=== PATIENT | female | born 1995 | race Caucasian/White ===

== ENCOUNTER 2018-03-02 23:19 | Emergency (ER) | payer MEDICAID, SELFPAY ==
[2018-03-02 23:19] VITALS: BP 133/69; PULSE 97; RESP 18; TEMP 36.6; O2SAT 97; BMI 27.7
--- NOTE | 2018-03-02 23:33 | ED.VISSUMM ---
- ER Visit Summary Date of Service: 03/02/18 Chief Complaint: Left-sided back pain History of Present Illness: The patient is a 22 F who has history of 5 myalgia and depression who presents with left-sided back pain. There is no history of trauma. She denies fever, chills night sweats. She denies cough, shortness of breath difficulty breathing. Denies chest pain. She denies dysuria, frequency, urgency or hematuria. She denies any vaginal bleeding. She denies any skin lesions. She denies any radicular pain. Denies bowel bladder dysfunction. Denies saddle paresthesia or anesthesia. She denies foot drop. She denies quadricep weakness going up or down steps. Physical Examination: Vital signs revealed slight elevation blood pressure 130/69. She has a depressed affect. Lungs are clear to auscultation with good maneuver bilaterally. Heart is regular without murmur, gallop or rub. Abdomen soft nontender. She has reproducible left paralumbar discomfort. Twisting bending causes discomfort. Straight leg test is negative. DTRs are symmetric no clonus or Babinski. DP and PT pulses are palpable. Test Results: None are indicated Emergency Department Course and Treatment: Patient is no longer taking Robaxin or anti-inflammatory. She states she has tramadol at home. Therefore patient received a dose of ibuprofen and appropriate home-going instructions for back pain Treatment Plan: Treat for muscle skeletal back pain and follow-up with PCP as needed if no improvement in 3-5 days Disposition: Discharged home in stable condition Impression: Paralumbar left-sided back pain without sciatica This note was generated with [employer] dictation software. It may contain incorrect words, spelling, and punctuation that were not noted in review of the chart prior to signing ED Disposition - Plan for ED Patient: Disposition: Home or Assisted Living Chief Complaint: Back Instructions: ED Neck Back Pain General Prescriptions: Ibuprofen 800 mg PO TID #14 tab Referrals: Tenzin Espinoza DO [Primary Care Provider] - 3-5 Days if not improving
--- NOTE | 2018-03-02 23:36 | ED.DCSUM_ITS ---
- ER Visit Summary Date of Service: 03/02/18 Chief Complaint: Left-sided back pain History of Present Illness: The patient is a 22 F who has history of 5 myalgia and depression who presents with left-sided back pain. There is no history of trauma. She denies fever, chills night sweats. She denies cough, shortness of breath difficulty breathing. Denies chest pain. She denies dysuria, frequency , urgency or hematuria. She denies any vaginal bleeding. She denies any skin lesions. She denies any radicular pain. Denies bowel bladder dysfunction. Denies saddle paresthesia or anesthesia. She denies foot drop. She denies quadricep weakness going up or down steps. Physical Examination: Vital signs revealed slight elevation blood pressure 130/ 69. She has a depressed affect. Lungs are clear to auscultation with good maneuver bilaterally. Heart is regular without murmur, gallop or rub. Abdomen soft nontender. She has reproducible left paralumbar discomfort. Twisting bending causes discomfort. Straight leg test is negative. DTRs are symmetric no clonus or Babinski. DP and PT pulses are palpable. Test Results: None are indicated Emergency Department Course and Treatment: Patient is no longer taking Robaxin or anti-inflammatory. She states she has tramadol at home. Therefore patient received a dose of ibuprofen and appropriate home-going instructions for back pain Treatment Plan: Treat for muscle skeletal back pain and follow-up with PCP as needed if no improvement in 3-5 days Disposition: Discharged home in stable condition Impression: Paralumbar left-sided back pain without sciatica This note was generated with [employer] dictation software. It may contain incorrect words, spelling, and punctuation that were not noted in review of the chart prior to signing ED Disposition - Plan for ED Patient: Disposition: Home or Assisted Living Chief Complaint: Back Instructions: ED Neck Back Pain General Prescriptions: Ibuprofen 800 mg PO TID #14 tab Referrals: Tenzin Espinoza DO [Primary Care Provider] - 3-5 Days if not improving
[2018-03-03] MEDS: Ibuprofen 400 MG Tablet 800 MG PO
[2018-03-03 00:06] VITALS: BP 129/70; PULSE 74; RESP 16; O2SAT 98
[2018-03-03 00:11] VITALS: BP 130/75; PULSE 74; RESP 16; O2SAT 97
== END 2018-03-03 00:12 | disposition home or self-care (01) ==
LOC: ED 23:46
PROVIDERS: Emergency Provider Emergency Medicine; Family Provider Family Medicine; PCP Family Medicine
DX: M54.5 Low back pain (principal); M79.7 Fibromyalgia; R03.0 Elevated blood-pressure reading, without diagnosis of hypertension; F32.9 Major depressive disorder, single episode, unspecified; Z79.899 Other long term (current) drug therapy
CPT/HCPCS: 99282

== ENCOUNTER 2019-04-30 11:08 | Emergency (ER) | payer MEDICAID, SELFPAY ==
[2019-04-30 11:09] VITALS: BP 124/81; PULSE 97; RESP 16; TEMP 36.6; O2SAT 100; BMI 25.0
--- NOTE | 2019-04-30 12:15 | US_ITS ---
STUDY: ULTRASOUND OF THE FEMALE PELVIS - COMPLETE REASON FOR EXAM: Female, 24 years old. Pelvic pain. LMP: April 23, 2019. TECHNIQUE: Transvaginal TECHNICAL QUALITY: Adequate. COMPARISON: None. FINDINGS: The uterus is anteverted and is in a midline position. The uterus measures 8.7 cm x 6.2 cm x 4.4 cm. Normal uterine cervix. The endometrium measures 1 mm in thickness, and is . There is no demonstrated endometrial mass. There is no demonstrated myometrial mass. I.U.D. - The patient does not have an I.U.D. The right ovary is visualized. The right ovary measures 5.1 cm x 3.4 cm x 2.6 cm. There is a 2.2 cm x 1.8 cm x 1.9 cm ovarian cyst. There is no visualized right adnexal mass or complex lesion. There is normal arterial and normal venous vascularity. The left ovary is visualized. The left ovary measures 4.9 cm x 3.9 cm x 4.1 cm. There is a 3.8 cm x 3.4 cm x 3.3 cm cyst. There is no visualized left adnexal mass or complex lesion. There is normal arterial and normal venous vascularity. There is no fluid in the cul-de-sac. Polycystic ovary disease: No. US/Transvaginal Non- IMPRESSION: Bilateral ovarian cysts. Electronically Signed: Олег Braga, at 14:25 EDT , Service support ,
[2019-04-30] MEDS: Ketorolac 30 MG/ML Syringe IV (13:31)
[2019-04-30 13:50] LABS: Absolute Lymphocyte Count 3.84 X10^3/uL (0.83-4.51); Absolute Neutrophil Count 10.1 X10^3/uL (2.0-7.7); Basophil# 0.09 X10^3/uL; Basophil% 0.6 % (0-1); Eosinophil# 0.31 X10^3/uL; Hematocrit 39.6 % (37-47); Hemoglobin 13.7 g/dL (12.0-15.0); Lymphocyte # 3.84 X10^3/ul (4.0); Lymphocyte % 24.8 % (19-41); Mean Corp Hgb Conc 34.6 g/dL (32-36); Mean Corpuscular Hgb 31.5 pg (27.0-32.0); Mean Platelet Vol. 8.9 fl (6.2-12.0); Monocyte# 1.06 X10^3/uL; Monocyte% 6.8 % (0-10); NRBC Flagged by Analyzer 0 % (0-5); Neutrophil # 10.14 X10^3/uL (2.7-7.7); Neutrophil % 65.4 % (47-70); Platelet Count 350 K/mm3 (150-450); RBC Distribution Width CV 11.9 % (11.6-14.6); RBC Distribution Width SD 39.5 fl (35.1-43.9); Red Blood Count 4.35 M/mm3 (4.2-5.4); White Blood Count 15.5 K/mm3 (4.4-11.0)
[2019-04-30 14:02] LABS: ALB/GLOB Ratio 1.1 RATIO (0.9-2.4); AST(SGOT) 48 U/L (15-37); Alanine Aminotransfer ALT/SGPT 39 U/L (13-56); Albumin, Serum 3.5 g/dL (3.2-5.0); Alkaline Phosphatase 87 U/L (45-117); Anion Gap 4 (5-15); BUN 9 mg/dL (7-18); BUN/Creat Ratio 11.7 RATIO (10-20); Calcium,Total 8.5 mg/dL (8.5-10.1); Chloride 109 mmol/L (98-107); Creatinine, Serum 0.77 mg/dL (0.55-1.02); EST Glomerular Filtration Rate 97 mL/min (>60); Est Glom Filt Rate - Afr Amer 117 mL/min (>60); Estimated Creatinine Clearance 107.67 ml/min; Globulin 3.1 g/dL (2.2-4.2); Glucose 84 mg/dL (74-106); Potassium 3.7 mmol/L (3.5-5.1); Protein, Total 6.6 g/dL (6.4-8.2); Sodium Level 140 mmol/L (136-145)
[2019-04-30 14:18] LABS: Internal QC Validated? YES +Cl - CLEAR BKGD; Pregnancy, Serum, hCG Quali. NEGATIVE Negative
[2019-04-30 14:22] LABS: Bacteria 0 SEEN /hpf (None Seen); Mucous, Urine 0 SEEN /hpf (<or=2+); Red Blood Cells-Urine 0 SEEN /hpf (0-5); White Blood Cells 0 SEEN /hpf (0-5)
[2019-04-30 14:31] LABS: Color, Urine Yellow (Yellow); Glucose, Dipstick Normal (Normal); Ketone-Dipstick Negative (Negative); Leukocyte Esterase-Dipstick Negative /ul (Negative); Nitrite-Dipstick Negative (Negative); Occult Blood-Urine Negative /ul (Negative); Protein-Dipstick Negative (Negative); Specific Gravity, Urine 1.015 (1.002-1.030); Urine Bilirubin Dipstick Negative (Negative); Urine Clarity Sl. Cloudy (Clear); Urine Urobilinogen Normal (Normal)
[2019-04-30 14:38] LABS: Squamous Epithelial Cells - UA 0-5 SEEN /hpf (5-10)
--- NOTE | 2019-04-30 15:09 | ED.DCSUM_ITS ---
- ER Visit Summary Date of Service: 04/30/19 Chief Complaint: Abdominal pain History of Present Illness: The patient is a 24 F who presents with abdominal pain that became worse today. Patient describes the pain as stabbing and dull. Patient states she has a history of ovarian cysts. Patient states she was told that there is bleeding from the cyst on her right. Patient admits to some nausea but denies any vomiting. Patient admits to some diarrhea. Patient admits to a fever of 101 at home. Patient denies any dysuria or hematuria. Patient states her last menstrual period was 2 weeks ago. Physical Examination: Vital signs are stable. Patient is afebrile. Patient is in no acute distress. Oral mucosa is pink and moist. Neck is supple. Trachea is midline. There is no JVD noted. Heart was regular rate and rhythm. Lungs are clear and equal bilaterally. Abdomen is soft. Bowel sounds are normal. There is some mild lower abdominal tenderness. There is no rebound or guarding noted. Cranial nerves II through XII are intact. There are no focal motor or sensory deficits noted. Test Results: Pelvic ultrasound showed bilateral ovarian cysts. There is no torsion noted. CBC showed a mild leukocytosis of 15.5. Basic metabolic profile was normal. Urinalysis was normal. hCG was negative. Emergency Department Course and Treatment: Patient was given IV fluids and Toradol here. Patient was feeling better on reevaluation. Patient was instructed to take Tylenol or ibuprofen as needed for pain. Patient was instructed to follow-up with her primary care physician or [facility] [employer] [employer] in 5 to 7 days. Patient understood and was agreeable with the plan. All questions were answered. Disposition: Discharge home Impression: Bilateral ovarian cysts This note was generated with [employer] dictation software. It may contain incorrect words, spelling, and punctuation that were not noted in review of the chart prior to signing ED Disposition - Plan for ED Patient: Disposition: Home or Assisted Living Diagnosis: Ovarian cyst Instructions: Ovarian Cyst Referrals: Tenzin Espinoza DO [Primary Care Provider] - 5-7 Days
[2019-04-30 15:30] VITALS: RESP 16
== END 2019-04-30 15:30 | disposition home or self-care (01) ==
PROVIDERS: Emergency Provider Emergency Medicine; Family Provider Family Medicine; PCP Family Medicine
DX: N83.201 Unspecified ovarian cyst, right side (principal); N83.202 Unspecified ovarian cyst, left side; R50.9 Fever, unspecified; R11.0 Nausea; R19.7 Diarrhea, unspecified; M79.7 Fibromyalgia; F32.9 Major depressive disorder, single episode, unspecified; F41.9 Anxiety disorder, unspecified; F17.200 Nicotine dependence, unspecified, uncomplicated; Z79.899 Other long term (current) drug therapy
CPT/HCPCS: 76830; 80053; 81001; 84703; 85025; 93976; 96374; 99283; A4216

== ENCOUNTER 2019-08-22 03:27 | Inpatient (IN) | payer MEDICAID, SELFPAY ==
[2019-08-22] VITALS (11 sets, daily range): BP systolic 93–111; BP diastolic 62–76; PULSE 65–93; RESP 16–18; TEMP 36.2–36.8; O2SAT 96–100; BMI 22.6
--- NOTE | 2019-08-22 03:31 | PCM.HP.STD ---
Problem List (1) Choledocholithiasis Status: Suspected (2) Hyperbilirubinemia Status: Acute (3) Anxiety Status: Chronic (4) Depression Status: Chronic (5) Fibromyalgia Status: Chronic History of Present Illness Date of Admission: 08/22/19 Chief Complaint: Abdominal pain. The patient is a 24 year old F patient with past medical history as mentioned above directly admitted from outside facility because of abdominal pain, elevated LFT and suspected choledocholithiasis. Patient illness started [place] evening with abdominal pain, upper abdominal pain, sharp pain, 6-7 out of 10 in severity, radiates to her back, associated with nausea and vomiting and without aggravating or relieving factors. She reports subjective fever as well. She denied constipation or diarrhea. She denied chest pain or shortness of breath. At this time, her vital signs are stable, afebrile. Her routine blood work was remarkable for WBC of 12.6, otherwise normal. LFT revealed elevated liver transaminases as well as alkaline phosphatase and total bilirubin. Lipase was normal. CT scan abdomen and pelvis with IV contrast revealed dilatation of the intrahepatic and extrahepatic biliary tree as well as left adnexal region probably due to hemorrhagic corpus luteum cyst. Patient mentioned that she does have help period nowadays. She is being admitted for abdominal pain, elevated LFT due to biliary obstruction likely secondary to choledocholithiasis. Past Medical History Past Medical History (Chronic Problems): Chronic Problems Anxiety (Chronic) Depression (Chronic) Fibromyalgia (Chronic) Allergies acetaminophen [From [facility]] Allergy (Verified 04/30/19 11:12) Rash gabapentin Allergy (Verified 04/30/19 11:12) Nausea hydrocodone [From [facility]] Allergy (Verified 04/30/19 11:12) Rash naproxen Allergy (Verified 04/30/19 11:12) Nausea sulfamethoxazole [From [facility]] Allergy (Verified 04/30/19 11:12) Unknown trimethoprim [From [facility]] Allergy (Verified 04/30/19 11:12) Unknown Home Medications: Ambulatory Orders Medication Instructions Recorded Amitriptyline HCl [Elavil] 25 mg PO QHS 02/04/15 Diazepam [Valium] 5 mg PO TID 08/22/19 Ibuprofen 800 mg PO TID 08/22/19 Surgical History: - - Left wrist surgery. Psychiatric History: No pertinent psych hx [employer] History: No pertinent [employer] history Smoking Status: Current every day smoker Tobacco Use: Cigarettes Alcohol: None Drugs: None - *Family History Maternal History Items: Heart Disease Paternal History Items: No pertinent history Review of Systems Constitutional: Reports: Anorexia, Fever. Denies: Chills, Weakness, Fatigue Eyes: Denies: Blurred vision, Double vision, Drainage, Redness HEENT: Denies: Difficulty Hearing, Ear Pain, Eye Pain, Nasal Congestion, Sore Throat Cardiovascular: Denies: Chest Pain, Claudication, Chest Pressure, Edema, Heaviness, Palpitations, Syncope Respiratory: Denies: Cough, Pleuritic Pain, Shortness of Breath, Sputum production, Wheezing Gastrointestinal: Reports: Abdominal Pain, Nausea, Vomiting. Denies: Constipation, Diarrhea Genitourinary: Denies: Dysuria, Frequency, Hematuria Musculoskeletal: Denies: Arm Pain, Back Pain, Foot Pain Skin: Denies: Dryness, Rash Neurological: Denies: Balance problems, Double vision, Change in Speech, Slurred speech, Confusion, Headaches, Incoordination, Numbness Psychiatric: Reports: Anxiety, Depression Endocrine: Denies: Change in Body Habitus, Polydipsia, Polyuria VTE Information - Inpt Only VTE Present on Admission: No VTE Mechan Device Prophylaxis: None VTE Pharm Prophylaxis ordered?: No Patient Problems: Active and Suspected Problems Choledocholithiasis (Suspected) Hyperbilirubinemia (Acute) - Physical Exam Vitals/I&O's: Vital Signs Temp Pulse Resp BP Pulse Ox 98.0 F 71 16 104/68 100 08/22/19 03:06 08/22/19 03:06 08/22/19 03:06 08/22/19 03:06 08/22/19 03:06 Oxygen Delivery Method Room Air Weight: 144 lb 6.444 oz Body Mass Index (BMI) 22.6 General: Alert, Oriented x3, Cooperative, - - She is in moderate pain. HEENT: Atraumatic, PERRLA, EOMI, Normocephalic Oral: No Gingival or Mucosal Lesions/ Ulcerations, Dry Mucosa Neck: Supple, No JVD, Negative Carotid Bruits, Trachea Midline, Thyroid Normal Size and Texture Lungs: Clear to auscultation, Normal air movement, No rhonchi, No wheeze, No rales Cardiovascular: Regular rate, Regular Rhythm, Normal S1, Normal S2, No murmurs, PMI Normal Abdomen: Bowel Sounds Present, Non-Distended, No Hepato-splenomegaly, Tender - Diffuse upper abdominal tenderness, right upper quadrant tenderness, negative London sign. No guarding or rigidity. Extremities: No clubbing, No cyanosis, No edema Skin: No rashes, No breakdown Lymphatic: No Cervical, Supraclavicular, or Inguinal Adenopathy Neurological: Cranial nerves II-XII grossly intact, Motor Exam 5/5 strength throughout Psych/Mental Status: Normal Affect, Appropriate, Alert and oriented to time, place, person, mood and affect Laboratory data: CBC: WBC is 12.6, hemoglobin 14.9, platelet count 343,000. BMP: Glucose 137, sodium 137, potassium 3.6, serum bicarb 22, BUN 7, creatinine 0.79. LFT: Total bilirubin is 2.9, AST 359, ALT 470, alkaline phosphatase 268, lipase 137. CT scan abdomen and pelvis without contrast revealed intra-and extrahepatic biliary ductal dilatation, left adnexal lesion likely due to hemorrhagic corpus luteum cyst. Assessment/Plan All Active Problems Hyperbilirubinemia (Acute) This is a 24 years old female patient directly admitted from outside facility because of abdominal pain, found to have elevated LFT and intrahepatic and extrahepatic biliary dilatation on CT scan abdomen and she is being admitted for evaluation and treatment. #1 abdominal pain/hyperbilirubinemia/elevated LFT: With intrahepatic and extrahepatic biliary patient on CT scan abdomen. This is probably due to choledocholithiasis. Lipase is normal. Vital signs are stable, afebrile. She does have mild leukocytosis. Plan: Admit to [facility], n.p.o., IV fluids, IV morphine PRN, IV antiemetics PRN, IV Pepcid twice daily, IV Phenergan as needed, general surgery consult for ERCP, repeat CBC and CMP as well as lipase this morning. At this time, no indication for IV antibiotics. Patient has been afebrile, she has mild leukocytosis. #2 anxiety/depression: Stable, will hold Elavil and Valium at this point. #3 fibromyalgia: IV morphine PRN as above, hold ibuprofen. #4 DVT prophylaxis: Low risk patient, no prophylaxis indicated. This note was generated with [employer] software. It may contain incorrect words, spelling, and punctuation that were not noted in checking the note before signing. Code Visit Inpatient E&M: 93189 Init Hosp L2
[2019-08-22] MEDS: Famotidine 200 MG/20 ML MDV 20 MG in 0.9% Normal Saline (Pres. free 8 ML 300 MG IV ×3 (04:04→21:12)
[2019-08-22] MEDS: 0.9% Normal Saline 1,000 ML 150 ML IV ×3 (04:04→19:39)
[2019-08-22] MEDS: Morphine 2 MG/ML Syringe IV ×5 (04:08→21:17)
[2019-08-22 06:50] LABS: Absolute Lymphocyte Count 1.83 X10^3/uL (0.83-4.51); Absolute Neutrophil Count 6.6 X10^3/uL (2.0-7.7); Basophil# 0.02 X10^3/uL; Basophil% 0.2 % (0-1); Eosinophils% 1.1 % (0-5); Hematocrit 43.9 % (37-47); Hemoglobin 14.3 g/dL (12.0-15.0); Lymphocyte # 1.83 X10^3/ul (4.0); Lymphocyte % 19.7 % (19-41); Mean Corp Hgb Conc 32.6 g/dL (32-36); Mean Corpuscular Hgb 29.9 pg (27.0-32.0); Mean Corpuscular Volume 91.6 fL (81-99); Mean Platelet Vol. 9.6 fl (6.2-12.0); Monocyte# 0.78 X10^3/uL; Monocyte% 8.4 % (0-10); NRBC Flagged by Analyzer 0 % (0-5); Neutrophil # 6.56 X10^3/uL (2.7-7.7); Neutrophil % 70.4 % (47-70); Platelet Count 282 K/mm3 (150-450); RBC Distribution Width CV 11.8 % (11.6-14.6); RBC Distribution Width SD 39.7 fl (35.1-43.9); Red Blood Count 4.79 M/mm3 (4.2-5.4); White Blood Count 9.3 K/mm3 (4.4-11.0)
[2019-08-22 07:10] LABS: ALB/GLOB Ratio 0.8 RATIO (0.9-2.4); AST(SGOT) 238 U/L (15-37); Alanine Aminotransfer ALT/SGPT 380 U/L (13-56); Albumin, Serum 3.1 g/dL (3.2-5.0); Alkaline Phosphatase 261 U/L (45-117); Anion Gap 4 (5-15); BUN 4 mg/dL (7-18); BUN/Creat Ratio 5.6 RATIO (10-20); Bilirubin, Direct 2.05 mg/dL (0.00-0.30); Calcium,Total 8.1 mg/dL (8.5-10.1); Chloride 111 mmol/L (98-107); Creatinine, Serum 0.72 mg/dL (0.55-1.02); EST Glomerular Filtration Rate 104 mL/min (>60); Est Glom Filt Rate - Afr Amer 126 mL/min (>60); Estimated Creatinine Clearance 115.14 ml/min; Globulin 3.7 g/dL (2.2-4.2); Glucose 87 mg/dL (74-106); Lipase 2251 U/L (73-393); Potassium 3.5 mmol/L (3.5-5.1); Protein, Total 6.8 g/dL (6.4-8.2); Sodium Level 139 mmol/L (136-145)
--- NOTE | 2019-08-22 07:51 | PN_ITS ---
Patient Problems: Active and Suspected Problems Obstructive jaundice (Acute) Gallstone pancreatitis (Acute) Choledocholithiasis (Suspected) Hyperbilirubinemia (Acute) Subjective: Patient seen and examined. She had ERCP done today; findings included 2 large stones, complete removal by biliary sphincterectomy and balloon extraction. Laparoscopic cholecystectomy planned for Friday. Patient complains of abdominal discomfort. N.p.o., on IV fluids Objective: Physical exam: General: Alert, Oriented x3, Cooperative, in pain HEENT: Atraumatic, PERRLA, EOMI, Normocephalic Oral: Dry Mucosa Neck: Supple, No JVD, Negative Carotid Bruits, Trachea Midline, Thyroid Normal Size and Texture Lungs: Clear to auscultation, Normal air movement, No rhonchi, No wheeze, No rales Cardiovascular: Regular rate, Regular Rhythm, Normal S1, Normal S2, No murmurs, PMI Normal Abdomen: Bowel Sounds Present, Non-Distended, No Hepato-splenomegaly, Tender - Diffuse upper abdominal tenderness, right upper quadrant tenderness, negative London sign. No guarding or rigidity. Extremities: No clubbing, No cyanosis, No edema Skin: No rashes, No breakdown Lymphatic: No Cervical, Supraclavicular, or Inguinal Adenopathy Neurological: Cranial nerves II-XII grossly intact, Motor Exam 5/5 strength throughout Psych/Mental Status: Normal Affect, Appropriate, Alert and oriented to time, place, person, mood and affect Vitals/I&O's: Vital Signs Temp Pulse Resp BP Pulse Ox 98.0 F 71 16 104/68 100 08/22/19 03:06 08/22/19 03:06 08/22/19 03:06 08/22/19 03:06 08/22/19 03:06 Oxygen Delivery Method Room Air Weight: 65.5 kg Body Mass Index (BMI) 22.6 Intake and Output for Last 24 Hours 08/20/19 08/21/19 08/22/19 23:59 23:59 23:59 Intake Total Balance Laboratory Results 08/22/19 06:07: WBC 9.3, RBC 4.79, Hgb 14.3, Hct 43.9, MCV 91.6, MCH 29.9, MCHC 32.6, RDW Std Deviation 39.7, RDW Coeff of Mia 11.8, Plt Count 282, MPV 9.6, Immature Gran % (Auto) 0.200, Neut % (Auto) 70.4 H, Lymph % (Auto) 19.7, Blair % (Auto) 8.4, Eos % (Auto) 1.1, Baso % (Auto) 0.2, Absolute Neuts (auto) 6.6, Absolute Lymphs (auto) 1.83, Nucleated RBC % 0 08/22/19 06:07: Sodium 139, Potassium 3.5, Chloride 111 H, Carbon Dioxide 24.0, Anion Gap 4 L, BUN 4 L, Creatinine 0.72, Estim Creat Clear Calc 115.14, Est GFR (MDRD) Af Amer 126, Est GFR (MDRD) Non-Af 104, BUN/Creatinine Ratio 5.6 L, Glucose 87, Calcium 8.1 L, Total Bilirubin 3.30 H, Direct Bilirubin 2.05 H, AST 238 H, ALT 380 H, Alkaline Phosphatase 261 H, Total Protein 6.8, Albumin 3.1 L, Globulin 3.7, Albumin/Globulin Ratio 0.8 L, Lipase 2251 H 08/22/19 06:07: Direct Bilirubin Cancelled Current Medications Sodium Chloride () 1,000 mls @ 150 mls/hr IV .[id number] [facility] Last Admin: 08/22/19 04:04 Dose: 150 mls/hr Documented by: Famotidine 20 mg/ Sodium (Chloride) 10 mls @ 300 mls/hr IV Q12 [facility] Last Infusion: 08/22/19 04:06 Dose: Infused Documented by: Sodium Chloride () 250 mls @ 15 mls/hr IV .[id number] PRN PRN Reason: Saline Flush Sodium Chloride () 250 mls @ 15 mls/hr IV .[id number] PRN PRN Reason: Additional IVPB Infusion Morphine Sulfate () 1 - 2 mg IV Q3H PRN PRN PRN Reason: Pain Score 6-10/10 Last Admin: 08/22/19 04:08 Dose: 2 mg Documented by: Ondansetron HCl (Zofran) 4 mg IV Q8H PRN PRN PRN Reason: NAUSEA/VOMITING Promethazine HCl (Phenergan) 6.25 mg IV Q6H PRN PRN PRN Reason: NAUSEA/VOMITING Sodium Chloride () 10 - 40 ml IV UD PRN PRN Reason: SALINE FLUSH Medical Necessity - Tobacco Use Smoking Status: Current every day smoker Tobacco Use: Cigarettes Assessment/Plan All Active Problems Obstructive jaundice (Acute) Gallstone pancreatitis (Acute) Hyperbilirubinemia (Acute) 24-year-old female with past medical history of fibromyalgia comes in with abdominal pain and found to have elevated LFTs and intrahepatic biliary dilatation seen on CT scan of the abdomen. 1. Acute gallstone pancreatitis, status post ERCP with 2 gallstones removal Admitting lipase is 2291, LFTs elevated Kept n.p.o., general surgery consulted Laparoscopic cystectomy planned for Friday Continue with IV fluids, famotidine, repeat blood work in a.m. 2. Anxiety/depression/fibromyalgia, on amitriptyline and Valium, will continue to hold We will put patient on PRN Valium to prevent her from withdrawing as she is on scheduled Valium at home 3. Nicotine dependence, on replacement 4. DVT PPx- early ambulation Code Visit Inpatient E&M: 82854 Subs Hosp L2
--- NOTE | 2019-08-22 08:33 | PCM.CONS.GEN ---
Problem List (1) Obstructive jaundice Status: Acute (2) Gallstone pancreatitis Status: Acute Reason for Consult Date of Consultation: 08/22/19 Reason for Consultation: Gallstone pancreatitis with obstructive jaundice History of Present Illness: The patient is a 24 year old F who was transferred due to epigastric pain. The patient reports that the pain started [place]. She did have nausea and vomiting. She has never had a problem like this in the past. She denies any fevers or chills. She says the pain is epigastric and radiates to the back. Past Medical History Past Medical History (Chronic Problems): Chronic Problems Anxiety (Chronic) Depression (Chronic) Fibromyalgia (Chronic) Allergies acetaminophen [From [place]] Allergy (Verified 04/30/19 11:12) Rash gabapentin Allergy (Verified 04/30/19 11:12) Nausea hydrocodone [From [place]] Allergy (Verified 04/30/19 11:12) Rash naproxen Allergy (Verified 04/30/19 11:12) Nausea sulfamethoxazole [From [place]] Allergy (Verified 04/30/19 11:12) Unknown trimethoprim [From [facility]] Allergy (Verified 04/30/19 11:12) Unknown Home Medications: Ambulatory Orders Medication Instructions Recorded Amitriptyline HCl [Elavil] 25 mg PO QHS 02/04/15 Diazepam [Valium] 5 mg PO TID 08/22/19 Ibuprofen 800 mg PO TID 08/22/19 Surgical History: - - Left wrist surgery. 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 Smoking Status: Current every day smoker Tobacco Use: Cigarettes Alcohol: None Drugs: None - *Family History Maternal History Items: Heart Disease Paternal History Items: No pertinent history Review of Systems Constitutional: Denies: Anorexia, Fever HEENT: Denies: Difficulty Swallowing Cardiovascular: Denies: Chest Pain Respiratory: Denies: Cough, Shortness of Breath Gastrointestinal: Reports: Abdominal Pain, Nausea, Vomiting Musculoskeletal: Denies: Joint Tenderness Skin: Denies: Dryness Hematologic/ Lymphatic: Denies: Anemia Patient Problems: Active and Suspected Problems Obstructive jaundice (Acute) Gallstone pancreatitis (Acute) Choledocholithiasis (Suspected) Hyperbilirubinemia (Acute) - Physical Exam Vitals/I&O's: Vital Signs Temp Pulse Resp BP Pulse Ox 98.1 F 93 18 104/74 100 08/22/19 08:30 12/29/19 08:30 08/22/19 08:30 08/22/19 08:30 08/22/19 08:30 Oxygen Delivery Method Room Air Weight: 144 lb 6.444 oz Body Mass Index (BMI) 22.6 Intake and Output for Last 24 Hours 08/20/19 08/21/19 08/22/19 23:59 23:59 23:59 Intake Total Balance General: Alert, Oriented x3 Neck: No JVD Lungs: Normal air movement Cardiovascular: Regular rate, Regular Rhythm Abdomen: Soft, Non-Distended, Tender - Tender in the epigastric region Skin: No rashes Musculoskeletal: No Muscle Wasting Laboratory Results 08/22/19 06:07: WBC 9.3, RBC 4.79, Hgb 14.3, Hct 43.9, MCV 91.6, MCH 29.9, MCHC 32.6, RDW Std Deviation 39.7, RDW Coeff of Mia 11.8, Plt Count 282, MPV 9.6, Immature Gran % (Auto) 0.200, Neut % (Auto) 70.4 H, Lymph % (Auto) 19.7, [place] % (Auto) 8.4, Eos % (Auto) 1.1, Baso % (Auto) 0.2, Absolute Neuts (auto) 6.6, Absolute Lymphs (auto) 1.83, Nucleated RBC % 0 08/22/19 06:07: Sodium 139, Potassium 3.5, Chloride 111 H, Carbon Dioxide 24.0, Anion Gap 4 L, BUN 4 L, Creatinine 0.72, Estim Creat Clear Calc 115.14, Est GFR (MDRD) Af Amer 126, Est GFR (MDRD) Non-Af 104, BUN/Creatinine Ratio 5.6 L, Glucose 87, Calcium 8.1 L, Total Bilirubin 3.30 H, Direct Bilirubin 2.05 H, AST 238 H, ALT 380 H, Alkaline Phosphatase 261 H, Total Protein 6.8, Albumin 3.1 L, Globulin 3.7, Albumin/Globulin Ratio 0.8 L, Lipase 2251 H 08/22/19 06:07: Direct Bilirubin Cancelled Current Medications Sodium Chloride () 1,000 mls @ 150 mls/hr IV .Q6H40M [facility] Last Admin: 08/22/19 04:04 Dose: 150 mls/hr Documented by: Famotidine 20 mg/ Sodium (Chloride) 10 mls @ 300 mls/hr IV Q12 EZRA Last Infusion: 08/22/19 04:06 Dose: Infused Documented by: Sodium Chloride () 250 mls @ 15 mls/hr IV .[id number] PRN PRN Reason: Saline Flush Sodium Chloride () 250 mls @ 15 mls/hr IV .[id number] PRN PRN Reason: Additional IVPB Infusion Cefotetan Disodium 2 gm/ (Dextrose) 100 mls @ 200 mls/hr IV SEND TO OR W/PATIENT ONE Stop: 08/22/19 09:01 Morphine Sulfate () 1 - 2 mg IV Q3H PRN PRN PRN Reason: Pain Score 6-10/10 Last Admin: 08/22/19 04:08 Dose: 2 mg Documented by: Ondansetron HCl (Zofran) 4 mg IV Q8H PRN PRN PRN Reason: NAUSEA/VOMITING Promethazine HCl (Phenergan) 6.25 mg IV Q6H PRN PRN PRN Reason: NAUSEA/VOMITING Sodium Chloride () 10 - 40 ml IV UD PRN PRN Reason: SALINE FLUSH Assessment/Plan All Active Problems Obstructive jaundice (Acute) Gallstone pancreatitis (Acute) Hyperbilirubinemia (Acute) 24-year-old female with obstructive jaundice and gallstone pancreatitis 1. The patient was transferred with CT scan showing dilation of the intra-and extrahepatic bile duct. The patient's liver enzymes were elevated at the outside hospital with a bilirubin of 3. Today her bilirubin is similar and she still has elevated liver enzymes but her lipase which was normal yesterday has now 2200. This indicates that she has obstructive jaundice as well as gallstone pancreatitis. I recommend ERCP today to relieve the obstruction. 2. I discussed ERCP with the patient in detail. I discussed the risks including not limited to bleeding, infection, perforation of the bile duct or bowel, worsening of the pancreatitis. I also discussed possible stent placement. The patient understands the risks and will to proceed. I also discussed that I would recommend laparoscopic cholecystectomy during this hospitalization to prevent this from happening again. The patient understands. Dennys Petty MD Pager: [facility] [address] [place] [address], [address] [place] [address] Office:
--- NOTE | 2019-08-22 09:15 | NURSING ---
Report given to Chelo in surgery. Informed nurse that pt had negative test at [facility] that is in her chart.
--- NOTE | 2019-08-22 10:30 | RAD_ITS ---
PROCEDURE: FLUOROSCOPIC GUIDANCE FOR ERCP DATE OF EXAMINATION: 08/22/2019 INDICATION: Female, 24 years old. Fluoroscopic guidance for ERCP 127.7 seconds of fluoroscopy time. Single image. TECHNIQUE: Single image demonstrates patent CBD with visualization only of the left hepatic biliary tree. No extravasation. No definitive filling defects. RAD/ERCP Biliary Only IMPRESSION: Limited exam (single image only). Please see ERCP report. Electronically Signed: Farooq Becerra MD ([place]) at 12:33 EST , Service support ,
[2019-08-22 10:34] LABS: Internal QC Validated? YES +Cl - CLEAR BKGD; Pregnancy, Serum, hCG Quali. NEGATIVE Negative
--- NOTE | 2019-08-22 11:00 | GALL_PTH ---
PATIENT: AZAEL MTZ LOC: MS3 U#:[id number] AGE/SX: 24/F ROOM: MS316 RE08/22/[address]: Dr. Adelso Dillon MD : 1995 BED: 1 DIS: 08/25/2019 SPEC #: [id number] RECD: 08/24/19 13:17 STATUS: SAIMA REAdam #: [id number] RICHARD: 08/22/19 11:[address]: Dennys Petty DEPT: SURGICAL PATHOLOGY RECD BY: Rosalio Carcamo ENTERED: 08/24/19 13:55 SP TYPE: JEMMABLGIAN HATHAWAY DR: DO Dr. Mamta Powell MD Dr. Prakash Chand, MD Tissues: Gallbladder, NOS Procedures: Surgery Specimen Level III HEADER OPERATION: ERCP PRE-OP DIAGNOSIS: Obstructive jaundice, gallstone pancreatitis TISSUE SUBMITTED: Gallbladder MICROSCOPIC DIAGNOSIS Gallbladder, cholecystectomy: Chronic cholecystitis and cholelithiasis. AM:bhumika 08/26/19 MICROSCOPIC DESCRIPTION Slides are reviewed. GROSS DESCRIPTION Received is one container labeled with the patient's name and designated gallbladder. The specimen consists of a gallbladder measuring 8 x 2.5 x 2.5 cm. The external surface is smooth and glistening. Focally, it is granular, hemorrhagic and contains cautery artifact. The lumen of the gallbladder contains yellow-green mucoid bile and multiple yellow calculi averaging 0.4 cm each. The mucosa is bile-stained and without any mass lesions. The gallbladder wall averages 0.2 cm in thickness and is free of mass lesions. Grinding Operator sections of the gallbladder and the cystic duct are submitted in one cassette. / AM:bhumika 08/24/19 TC:3 CPT: 41641
--- NOTE | 2019-08-22 11:03 | OP.ERCP_ITS ---
Patient Name: Thalia Brunson Procedure Date: 08/22/2019 10:12 AM Date of : 1995 Age: 24 Procedure: ERCP Indications: Suspected bile duct stone(s), Jaundice, Suspected acute pancreatitis Providers: Dennys Petty MD Medicines: General Anesthesia Patient Profile: This is a 24 year old female. Refer to note in patient chart for documentation of history and physical. Complications: No immediate complications. Estimated blood loss: Minimal. Procedure: Pre-Anesthesia Assessment: - Prior to the procedure, a History and Physical was performed, and patient medications and allergies were reviewed. The patient's tolerance of previous anesthesia was also reviewed. The risks and benefits of the procedure and the sedation options and risks were discussed with the patient. All questions were answered, and informed consent was obtained. Prior Anticoagulants: The patient has taken no previous anticoagulant or antiplatelet agents. After reviewing the risks and benefits, the patient was deemed in satisfactory condition to undergo the procedure. After obtaining informed consent, the scope was passed under direct vision. Throughout the procedure, the patient's blood pressure, pulse, and oxygen saturations were monitored continuously. The [id number] endoscope was introduced through the mouth, and advanced to the duodenum and used to inject contrast into the bile duct. The ERCP was accomplished without difficulty. The patient tolerated the procedure well. Scope In: 10:46:21 AM Scope Out: 10:56:51 AM Total Procedure Duration Time 0 hours 10 minutes 30 seconds Findings: The major papilla was normal. A 0.035 inch x 260 cm straight Dreamwire was passed into the biliary tree. The sphincterotome was passed over the guidewire and the bile duct was then deeply cannulated. Contrast was injected. Biliary sphincterotomy was made with a monofilament sphincterotome using ERBE electrocautery. There was no post-sphincterotomy bleeding. To discover objects, the biliary tree was swept with a 12 mm balloon starting at the bifurcation. 2 stones were identified in the common duct. The biliary tree was swept with a basket starting at the bifurcation. Two stones were removed. No stones remained. The endoscope was withdrawn from the patient. Impression: - The major papilla appeared normal. - Choledocholithiasis was found. Complete removal was accomplished by biliary sphincterotomy and balloon extraction. - A biliary sphincterotomy was performed. - The biliary tree was swept. - The biliary tree was swept. Recommendation: - Return patient to hospital dial for ongoing care. - NPO [Duration]. Procedure Code(s): --- Professional --- 49034, Endoscopic retrograde cholangiopancreatography (ERCP); with removal of calculi/debris from biliary/pancreatic duct(s) 08216, 51, Endoscopic retrograde cholangiopancreatography (ERCP); with sphincterotomy/papillotomy Diagnosis Code(s): --- Professional --- K80.50, Calculus of bile duct without cholangitis or cholecystitis without obstruction R17, Unspecified jaundice CPT copyright 2017 [employer]. All rights reserved. The codes documented in this report are preliminary and upon assistance representative review may be revised to meet current compliance requirements. Dennys Petty MD 08/22/2019 11:03:28 AM This report has been signed electronically. Number of Addenda: 0 Note Initiated On: 08/22/2019 10:12 AM
--- NOTE | 2019-08-22 11:04 | PN_ITS ---
Progress Note ERCP was performed and 2 large stones were removed from the common bile duct. There appeared to be no stones remaining. Due to the fact the patient has pancreatitis I would recommend continuing n.p.o. status until her lipase is downtrending and her epigastric pain is resolved. Plan for laparoscopic cholecystectomy, likely Friday. Dennys Petty MD Pager: [facility] [address] [place] [address], [address] [place] [address] Office: [place] Vital Signs/Narrative: Vital Signs Temp Pulse Resp BP Pulse Ox 08/22/19 08:30 98.1 F 93 18 104/74 100
--- NOTE | 2019-08-22 11:04 | PCM.PN.BLA ---
Progress Note ERCP was performed and 2 large stones were removed from the common bile duct. There appeared to be no stones remaining. Due to the fact the patient has pancreatitis I would recommend continuing n.p.o. status until her lipase is downtrending and her epigastric pain is resolved. Plan for laparoscopic cholecystectomy, likely Friday. Dennys Petty MD Pager: [facility] [address] [place] [address], [address] [place] [address] Office: [place] Vital Signs/Narrative: Vital Signs Temp Pulse Resp BP Pulse Ox 08/22/19 08:30 98.1 F 93 18 104/74 100
[2019-08-22] MEDS: LORazepam 2 MG/ML Syringe 1 MG IV (18:02)
[2019-08-23] MEDS: LORazepam 2 MG/ML Syringe 1 MG IV (01:25)
[2019-08-23] MEDS: 0.9% Normal Saline 1,000 ML 150 ML IV ×4 (02:39→23:46)
[2019-08-23 03:55] VITALS: BP 111/72; PULSE 70; RESP 16; TEMP 36.6; O2SAT 99
[2019-08-23] MEDS: Morphine 2 MG/ML Syringe IV (04:00)
[2019-08-23 06:05] LABS: Absolute Lymphocyte Count 0.88 X10^3/uL (0.83-4.51); Absolute Neutrophil Count 4.9 X10^3/uL (2.0-7.7); Basophil# 0.02 X10^3/uL; Basophil% 0.3 % (0-1); Eosinophil# 0.04 X10^3/uL; Eosinophils% 0.6 % (0-5); Hemoglobin 12.6 g/dL (12.0-15.0); Lymphocyte # 0.88 X10^3/ul (4.0); Lymphocyte % 14.2 % (19-41); Mean Corpuscular Hgb 34.6 pg (27.0-32.0); Mean Corpuscular Volume 98.9 fL (81-99); Mean Platelet Vol. 10.4 fl (6.2-12.0); Monocyte# 0.27 X10^3/uL; Monocyte% 4.4 % (0-10); NRBC Flagged by Analyzer 0 % (0-5); Neutrophil # 4.93 X10^3/uL (2.7-7.7); Neutrophil % 79.9 % (47-70); Platelet Count 162 K/mm3 (150-450); RBC Distribution Width CV 14.4 % (11.6-14.6); RBC Distribution Width SD 45.9 fl (35.1-43.9); Red Blood Count 3.64 M/mm3 (4.2-5.4); White Blood Count 6.2 K/mm3 (4.4-11.0)
[2019-08-23 06:27] LABS: ALB/GLOB Ratio 0.9 RATIO (0.9-2.4); AST(SGOT) 36 U/L (15-37); Alanine Aminotransfer ALT/SGPT 71 U/L (13-56); Albumin, Serum 2.9 g/dL (3.2-5.0); Alkaline Phosphatase 129 U/L (45-117); Anion Gap 11 (5-15); BUN 34 mg/dL (7-18); BUN/Creat Ratio 24.8 RATIO (10-20); Calcium,Total 8.4 mg/dL (8.5-10.1); Chloride 101 mmol/L (98-107); Creatinine, Serum 1.37 mg/dL (0.55-1.02); EST Glomerular Filtration Rate 49 mL/min (>60); Est Glom Filt Rate - Afr Amer 60 mL/min (>60); Estimated Creatinine Clearance 60.51 ml/min; Globulin 3.3 g/dL (2.2-4.2); Glucose 228 mg/dL (74-106); Lipase 78 U/L (73-393); Potassium 4.2 mmol/L (3.5-5.1); Protein, Total 6.2 g/dL (6.4-8.2); Sodium Level 134 mmol/L (136-145)
[2019-08-23 07:21] VITALS: O2SAT 98
--- NOTE | 2019-08-23 07:53 | PN.SURG_ITS ---
Patient Problems: Active and Suspected Problems Obstructive jaundice (Acute) Gallstone pancreatitis (Acute) Choledocholithiasis (Suspected) Hyperbilirubinemia (Acute) Subjective: Patient is still having some pain but it is now in her right lower quadrant and lower back. She is not having any nausea or vomiting. She is asking for a diet. - Physical Exam Vitals/I&O's: Vital Signs Temp Pulse Resp BP Pulse Ox 97.8 F 70 16 111/72 98 08/23/19 03:55 08/23/19 03:55 08/23/19 03:55 08/23/19 03:55 08/23/19 07:21 Oxygen Delivery Method Room Air Weight: 144 lb 6.444 oz Body Mass Index (BMI) 22.6 Intake and Output for Last 24 Hours 08/21/19 08/22/19 08/23/19 23:59 23:59 23:59 Intake Total 2827 / 2827 1000 / 1000 Balance 2827 / 2827 1000 / 1000 General: Alert, Oriented x3 Neck: No JVD Lungs: Normal air movement Cardiovascular: Regular rate, Regular Rhythm Abdomen: Soft, Non-Distended Laboratory Results 08/22/19 10:22: Serum , Qual NEGATIVE 08/23/19 05:38: WBC 6.2, RBC 3.64 L, Hgb 12.6, Hct 36.0 L, MCV 98.9 D, MCH 34.6 H, MCHC 35.0, RDW Std Deviation 45.9 H, RDW Coeff of Mia 14.4, Plt Count 162, MPV 10.4, Immature Gran % (Auto) 0.600, Neut % (Auto) 79.9 H, Lymph % (Auto) 14.2 L, [place] % (Auto) 4.4, Eos % (Auto) 0.6, Baso % (Auto) 0.3, Absolute Neuts (auto) 4.9, Absolute Lymphs (auto) 0.88, Nucleated RBC % 0 08/23/19 05:38: Sodium 134 L, Potassium 4.2, Chloride 101, Carbon Dioxide 22.0, Anion Gap 11, BUN 34 H, Creatinine 1.37 H, Estim Creat Clear Calc 60.51, Est GFR (MDRD) Af Amer 60, Est GFR (MDRD) Non-Af 49 L, BUN/Creatinine Ratio 24.8 H, Glucose 228 H, Calcium 8.4 L, Total Bilirubin 1.10 H, AST 36, ALT 71 H, Alkaline Phosphatase 129 H, Total Protein 6.2 L, Albumin 2.9 L, Globulin 3.3, Albumin/Globulin Ratio 0.9, Lipase 78 Current Medications Bisacodyl (Dulcolax) 10 mg RECTAL DAILY PRN PRN Reason: Constipation Sodium Chloride () 1,000 mls @ 150 mls/hr IV .Q6H40M [facility] Last Admin: 08/23/19 02:39 Dose: 150 mls/hr Documented by: Famotidine 20 mg/ Sodium (Chloride) 10 mls @ 300 mls/hr IV Q12 [facility] Last Infusion: 08/22/19 21:15 Dose: Infused Documented by: Sodium Chloride () 250 mls @ 15 mls/hr IV .[id number] PRN PRN Reason: Saline Flush Sodium Chloride () 250 mls @ 15 mls/hr IV .[id number] PRN PRN Reason: Additional IVPB Infusion Sodium Chloride () 1,000 mls @ 999 mls/hr IV .Q1H1M ONE Stop: 08/23/19 08:27 Lorazepam (Ativan) 1 mg IV Q6H PRN PRN PRN Reason: ANXIETY Last Admin: 08/23/19 01:25 Dose: 1 mg Documented by: Morphine Sulfate () 1 - 2 mg IV Q3H PRN PRN PRN Reason: Pain Score 6-10/10 Last Admin: 08/23/19 04:00 Dose: 2 mg Documented by: Nicotine (Nicoderm Cq (Pbkc)) 21 mg TRANSDERM. DAILY [facility] Last Admin: 08/22/19 16:43 Dose: 21 mg Documented by: Nicotine Polacrilex ([place] Nicotine (Bkc)) 2 mg PO Q2H PRN PRN PRN Reason: Nicotine Craving Ondansetron HCl (Zofran) 4 mg IV Q8H PRN PRN PRN Reason: NAUSEA/VOMITING Promethazine HCl (Phenergan) 6.25 mg IV Q6H PRN PRN PRN Reason: NAUSEA/VOMITING Sodium Chloride () 10 - 40 ml IV UD PRN PRN Reason: SALINE FLUSH Medical Necessity - Tobacco Use Smoking Status: Current every day smoker Tobacco Use: Cigarettes Assessment/Plan All Active Problems Obstructive jaundice (Acute) Gallstone pancreatitis (Acute) Hyperbilirubinemia (Acute) 24-year-old female with choledocholithiasis and gallstone pancreatitis 1. The patient had ERCP yesterday and 2 stones were removed from the common bile duct. Liver enzymes are decreasing accordingly. The patient's lipase is normal. She is no longer having epigastric pain. I will start her on a diet today and keep her n.p.o. after midnight and plan for laparoscopic cholecystectomy tomorrow. 2. I discussed the procedure in detail with the patient. I discussed the risks, benefits, and alternatives of the procedure. I discussed the risks including but not limited to bleeding, infection, injury to surrounding organs such as the liver, bile duct, bowels. I did discuss the possibility of having to convert to an open procedure as well as the possibility that if any injuries occurred this may necessitate further surgery at a tertiary care center. Dennys Petty MD Pager: [facility] [address] [place] [address] [address] [place] [address] Office:
[2019-08-23] MEDS: 0.9% Normal Saline 1,000 ML 999 ML IV (08:17)
[2019-08-23 08:20] VITALS: BP 96/53; PULSE 64; RESP 16; TEMP 36.8; O2SAT 100
[2019-08-23] MEDS: Famotidine 200 MG/20 ML MDV 20 MG in 0.9% Normal Saline (Pres. free 8 ML 300 MG IV ×2 (10:48→21:18)
[2019-08-23] MEDS: 0.9% Saline Lock 10 ML Syringe IV ×2 (10:48→21:19)
--- NOTE | 2019-08-23 11:25 | CASEMGMT ---
[place] Face to Face with patient for initial transition planning/care coordination assessment. RN NIKITA introduced self and role at [facility]. Patient lying in bed, alert and oriented. Patient willing to participate in assessment and is able to answer all questions appropriately. Care providers, pharmacy, and demographics verified. Patient wishes to discharge home, denies need for home health at this time. Patient states she has no further needs or concerns at this time. CM to follow for discharge planning needs that may arise. PCP: Alexis Specialists: None Preferred Pharmacy: [facility] Insurance: [employer] Prescription Benefit: yes Living Will/HPOA: none LNOK: grandparents Living Arrangements: Patient lives in 2 story home with grandparents. Patient is independent Transportation: Grandfather DME/HHC: Patient denies DME or previous HHC. Disposition Plan: Patient to discharge home with family support and follow-up plans in place. Nica OLIVARES, RN, CM
[2019-08-23 13:51] VITALS: BP 101/74; PULSE 69; RESP 16; TEMP 36.8; O2SAT 100
[2019-08-23] MEDS: oxyCODONE 5 MG Tablet PO ×3 (13:59→22:41)
[2019-08-23 15:14] VITALS: O2SAT 99
[2019-08-23] MEDS: diazePAM 5 MG Tablet PO ×2 (15:22→22:41)
--- NOTE | 2019-08-23 15:59 | PCM.PN.HOSP ---
Patient Problems: Active and Suspected Problems Obstructive jaundice (Acute) Gallstone pancreatitis (Acute) Choledocholithiasis (Suspected) Hyperbilirubinemia (Acute) Reason for Visit: Elevated LFT. Obstructive jaundice, gallstone pancreatitis secondary to choledocholithiasis. Objective: No fever or chills. Hemodynamically stable. Patient complained of right lower quadrant pain and asking for morphine. Seems patient rates pain 1-3 but asked for morphine therefore risk for opioid dependence. Vitals/I&O's: Vital Signs Temp Pulse Resp BP Pulse Ox 98.3 F 69 16 101/74 99 08/23/19 13:51 08/23/19 13:51 08/23/19 13:51 08/23/19 13:51 08/23/19 15:14 Oxygen Delivery Method Room Air Weight: 144 lb 6.444 oz Body Mass Index (BMI) 22.6 Intake and Output for Last 24 Hours 08/21/19 08/22/19 08/23/19 23:59 23:59 23:59 Intake Total 2827 / 2827 3857.5 / 3857.5 Balance 2827 / 2827 3857.5 / 3857.5 General: Alert, Oriented x3, Cooperative HEENT: Atraumatic, PERRLA, EOMI, Normocephalic Neck: Supple, No JVD, Negative Carotid Bruits Lungs: Clear to auscultation, Normal air movement, No rhonchi, No wheeze, No rales Cardiovascular: Regular rate, Regular Rhythm, Normal S1, Normal S2, No murmurs Abdomen: Bowel Sounds Present, Soft, Non-Distended, Tender - Mild tenderness in right upper quadrant. Extremities: No edema, Capillary Refill Less than 3 Seconds Skin: No rashes, No breakdown Musculoskeletal: No Tenderness to Palpation of Joints or Extremities Neurological: Cranial nerves II-XII grossly intact Psych/Mental Status: Normal Affect, Appropriate Laboratory Results 08/23/19 05:38: WBC 6.2, RBC 3.64 L, Hgb 12.6, Hct 36.0 L, MCV 98.9 D, MCH 34.6 H, MCHC 35.0, RDW Std Deviation 45.9 H, RDW Coeff of Mia 14.4, Plt Count 162, MPV 10.4, Immature Gran % (Auto) 0.600, Neut % (Auto) 79.9 H, Lymph % (Auto) 14.2 L, [place] % (Auto) 4.4, Eos % (Auto) 0.6, Baso % (Auto) 0.3, Absolute Neuts (auto) 4.9, Absolute Lymphs (auto) 0.88, Nucleated RBC % 0 08/23/19 05:38: Sodium 134 L, Potassium 4.2, Chloride 101, Carbon Dioxide 22.0, Anion Gap 11, BUN 34 H, Creatinine 1.37 H, Estim Creat Clear Calc 60.51, Est GFR (MDRD) Af Amer 60, Est GFR (MDRD) Non-Af 49 L, BUN/Creatinine Ratio 24.8 H, Glucose 228 H, Calcium 8.4 L, Total Bilirubin 1.10 H, AST 36, ALT 71 H, Alkaline Phosphatase 129 H, Total Protein 6.2 L, Albumin 2.9 L, Globulin 3.3, Albumin/Globulin Ratio 0.9, Lipase 78 Current Medications Amitriptyline HCl (Elavil) 25 mg PO QHS EZRA Bisacodyl (Dulcolax) 10 mg RECTAL DAILY PRN PRN Reason: Constipation Diazepam (Valium) 5 mg PO TID PRN PRN PRN Reason: ANXIETY Last Admin: 08/23/19 15:22 Dose: 5 mg Documented by: Sodium Chloride () 1,000 mls @ 150 mls/hr IV .[id number] [facility] Last Infusion: 08/23/19 09:18 Dose: 150 mls/hr Documented by: Famotidine 20 mg/ Sodium (Chloride) 10 mls @ 300 mls/hr IV Q12 [facility] Last Infusion: 08/23/19 10:55 Dose: Infused Documented by: Sodium Chloride () 250 mls @ 15 mls/hr IV .[id number] PRN PRN Reason: Saline Flush Sodium Chloride () 250 mls @ 15 mls/hr IV .[id number] PRN PRN Reason: Additional IVPB Infusion Cefotetan Disodium 2 gm/ (Sodium Chloride) 100 mls @ 200 mls/hr IV SEND TO OR W/PATIENT ONE Stop: 08/24/19 08:29 Ibuprofen (Motrin) 200 mg PO Q6H PRN PRN PRN Reason: Pain Score 1-3/10 or T>100.4 F Lorazepam (Ativan) 1 mg IV Q6H PRN PRN PRN Reason: ANXIETY Last Admin: 08/23/19 01:25 Dose: 1 mg Documented by: Morphine Sulfate () 2 mg IV Q3H PRN PRN PRN Reason: Pain Score 6-10/10 Nicotine (Nicoderm Cq (Pbkc)) 21 mg TRANSDERM. DAILY EZRA Last Admin: 08/23/19 10:48 Dose: 21 mg Documented by: Nicotine Polacrilex (Rugby Nicotine (Bkc)) 2 mg PO Q2H PRN PRN PRN Reason: Nicotine Craving Ondansetron HCl (Zofran) 4 mg IV Q8H PRN PRN PRN Reason: NAUSEA/VOMITING Oxycodone HCl (Oxyir) 5 mg PO Q4H PRN PRN PRN Reason: Pain Score 4-5/10 Last Admin: 08/23/19 13:59 Dose: 5 mg Documented by: Promethazine HCl (Phenergan) 6.25 mg IV Q6H PRN PRN PRN Reason: NAUSEA/VOMITING Sodium Chloride () 10 - 40 ml IV UD PRN PRN Reason: SALINE FLUSH Last Admin: 08/23/19 10:48 Dose: 10 ml Documented by: STROKE Vital Signs/Narrative: Vital Signs Temp Pulse Resp BP Pulse Ox 08/23/19 15:14 99 08/23/19 13:51 98.3 F 69 16 101/74 100 Medical Necessity - Tobacco Use Smoking Status: Current every day smoker Tobacco Use: Cigarettes Assessment/Plan All Active Problems Obstructive jaundice (Acute) Gallstone pancreatitis (Acute) Hyperbilirubinemia (Acute) This is a 24-year-old female with past medical history of fibromyalgia is being admitted with abdominal pain and found to have elevated LFTs, obstructive jaundice and intrahepatic biliary dilatation seen on CT scan of the abdomen. 1. Acute gallstone pancreatitis with choledocholithiasis: Patient had ERCP done and to stones were removed from CBD. LFTs are improving. Lipase is normal. Admitting lipase was 2291. Laparoscopic cystectomy planned for Friday. Patient was seen by surgeon and started on diet today and n.p.o. after midnight for lap [place] tomorrow a.m. Continue with IV fluids, famotidine, repeat blood work in a.m. 2. Anxiety/depression/fibromyalgia, on amitriptyline and Valium,: Patient is on Valium 5 mg 3 times daily not clear region probably anxiety/depression fibromyalgia. Valium resume on PRN basis. Patient also constantly asked for morphine as per nursing staff. 3. Nicotine dependence, on replacement 4. DVT PPx- early ambulation Laboratory Results 08/23/19 05:38: WBC 6.2, RBC 3.64 L, Hgb 12.6, Hct 36.0 L, MCV 98.9 D, MCH 34.6 H, MCHC 35.0, RDW Std Deviation 45.9 H, RDW Coeff of Mia 14.4, Plt Count 162, MPV 10.4, Immature Gran % (Auto) 0.600, Neut % (Auto) 79.9 H, Lymph % (Auto) 14.2 L, [place] % (Auto) 4.4, Eos % (Auto) 0.6, Baso % (Auto) 0.3, Absolute Neuts (auto) 4.9, Absolute Lymphs (auto) 0.88, Nucleated RBC % 0 08/23/19 05:38: Sodium 134 L, Potassium 4.2, Chloride 101, Carbon Dioxide 22.0, Anion Gap 11, BUN 34 H, Creatinine 1.37 H, Estim Creat Clear Calc 60.51, Est GFR (MDRD) Af Amer 60, Est GFR (MDRD) Non-Af 49 L, BUN/Creatinine Ratio 24.8 H, Glucose 228 H, Calcium 8.4 L, Total Bilirubin 1.10 H, AST 36, ALT 71 H, Alkaline Phosphatase 129 H, Total Protein 6.2 L, Albumin 2.9 L, Globulin 3.3, Albumin/Globulin Ratio 0.9, Lipase 78 Clinical Impression(s) from Imaging Studies ERCP X-Ray 08/22/19 10:30 IMPRESSION: Limited exam (single image only). Please see ERCP report. Code Visit Inpatient E&M: 65880 Subs Hosp L3
[2019-08-23] MEDS: Benzonatate 100 MG Capsule 200 MG PO ×2 (16:39→21:19)
--- NOTE | 2019-08-23 19:33 | NURSING ---
Minal Arteaga left message with staff at nurses' station to call her with surgery time. This RN asked pt and her mother if they would like this RN to notify Dot of surgical time of 1100. Both requested that this RN not call her.
[2019-08-23 21:07] VITALS: BP 110/68; PULSE 86; RESP 18; TEMP 36.8; O2SAT 96
[2019-08-23] MEDS: Amitriptyline 25 MG Tablet PO (21:19)
[2019-08-23] MEDS: guaiFENesin 1,200 MG Tablet 1200 MG PO (21:19)
[2019-08-23] MEDS: Ibuprofen 200 MG Tablet PO (23:48)
[2019-08-24] VITALS (14 sets, daily range): BP systolic 119–158; BP diastolic 73–100; PULSE 52–98; RESP 16–18; TEMP 36.1–37.2; O2SAT 97–100; BMI 22.6
--- NOTE | 2019-08-24 01:20 | EKG12_ITS ---
Test Reason : PREOP Blood Pressure : / mmHG Vent. Rate : 044 BPM Atrial Rate : 044 BPM P-R Int : 140 ms QRS Dur : 090 ms QT Int : 474 ms P-R-T Axes : 022 063 049 degrees QTc Int : 405 ms Marked sinus bradycardia Abnormal ECG Confirmed by JW MARQUEZ, ISAURA ([id number]), book editor WAGNER COOK ([id number]) on 08/26/2019 11:28:39 AM Referred By: CALE Confirmed By:ISAURA ESCALERA MD
[2019-08-24] MEDS: Ondansetron 4 MG/2 ML Vial IV (02:21)
[2019-08-24] MEDS: Morphine 2 MG/ML Syringe IV (02:21)
[2019-08-24] MEDS: oxyCODONE 5 MG Tablet PO ×3 (03:10→22:01)
[2019-08-24] MEDS: Benzonatate 100 MG Capsule 200 MG PO ×3 (05:40→22:08)
[2019-08-24] MEDS: proMETHazine 25 MG/ML Syringe 6.25 MG IV (05:44)
[2019-08-24] MEDS: 0.9% Saline Lock 10 ML Syringe IV ×2 (05:48→22:53)
[2019-08-24] MEDS: 0.9% Normal Saline 1,000 ML 150 ML IV ×4 (06:47→20:22)
[2019-08-24 06:54] LABS: Absolute Lymphocyte Count 1.08 X10^3/uL (0.83-4.51); Absolute Neutrophil Count 5.6 X10^3/uL (2.0-7.7); Basophil# 0.03 X10^3/uL; Basophil% 0.4 % (0-1); Eosinophil# 0.08 X10^3/uL; Eosinophils% 1.1 % (0-5); Hematocrit 42.2 % (37-47); Hemoglobin 14.2 g/dL (12.0-15.0); Lymphocyte # 1.08 X10^3/ul (4.0); Mean Corp Hgb Conc 33.6 g/dL (32-36); Mean Corpuscular Hgb 30.3 pg (27.0-32.0); Mean Platelet Vol. 9.5 fl (6.2-12.0); Monocyte# 0.39 X10^3/uL; Monocyte% 5.4 % (0-10); NRBC Flagged by Analyzer 0 % (0-5); Neutrophil # 5.59 X10^3/uL (2.7-7.7); Neutrophil % 77.7 % (47-70); Platelet Count 291 K/mm3 (150-450); RBC Distribution Width CV 11.5 % (11.6-14.6); RBC Distribution Width SD 37.4 fl (35.1-43.9); Red Blood Count 4.69 M/mm3 (4.2-5.4); White Blood Count 7.2 K/mm3 (4.4-11.0)
[2019-08-24 07:02] LABS: Differential Indicated SCAN CRITERIA MET
[2019-08-24 07:25] LABS: ALB/GLOB Ratio 0.8 RATIO (0.9-2.4); AST(SGOT) 111 U/L (15-37); Alanine Aminotransfer ALT/SGPT 228 U/L (13-56); Alkaline Phosphatase 271 U/L (45-117); Anion Gap 4 (5-15); BUN 2 mg/dL (7-18); BUN/Creat Ratio 2.7 RATIO (10-20); Calcium,Total 8.4 mg/dL (8.5-10.1); Chloride 108 mmol/L (98-107); Creatinine, Serum 0.74 mg/dL (0.55-1.02); EST Glomerular Filtration Rate 100 mL/min (>60); Est Glom Filt Rate - Afr Amer 121 mL/min (>60); Estimated Creatinine Clearance 112.03 ml/min; Globulin 3.8 g/dL (2.2-4.2); Glucose 103 mg/dL (74-106); Potassium 3.6 mmol/L (3.5-5.1); Protein, Total 6.8 g/dL (6.4-8.2); Sodium Level 138 mmol/L (136-145)
--- NOTE | 2019-08-24 07:43 | PCM.PN.SRG ---
Patient Problems: Active and Suspected Problems Obstructive jaundice (Acute) Gallstone pancreatitis (Acute) Choledocholithiasis (Suspected) Hyperbilirubinemia (Acute) Subjective: Patient is reporting lower abdominal pain. She has not had a bowel movement since admission. - Physical Exam Vitals/I&O's: Vital Signs Temp Pulse Resp BP Pulse Ox 98 F 58 L 18 130/73 H 99 08/24/19 02:15 08/24/19 02:15 08/24/19 02:15 08/24/19 02:15 08/24/19 02:15 Oxygen Delivery Method Room Air Weight: 144 lb 6.444 oz Body Mass Index (BMI) 22.6 Intake and Output for Last 24 Hours 08/22/19 08/23/19 08/24/19 23:59 23:59 23:59 Intake Total 2827 / 2827 7295.0 / 8195.0 190 / 1900 Balance 2827 / 2827 7295.0 / 8195.0 1899 General: Alert, Oriented x3 Lungs: Normal air movement Abdomen: Soft, Tender Laboratory Results 08/24/19 06:10: WBC 7.2, RBC 4.69, Hgb 14.2, Hct 42.2, MCV 90.0 D, MCH 30.3, MCHC 33.6, RDW Std Deviation 37.4, RDW Coeff of Mia 11.5 L, Plt Count 291, MPV 9.5, Immature Gran % (Auto) 0.400, Neut % (Auto) 77.7 H, Lymph % (Auto) 15.0 L, [place] % (Auto) 5.4, Eos % (Auto) 1.1, Baso % (Auto) 0.4, Absolute Neuts (auto) 5.6, Absolute Lymphs (auto) 1.08, Nucleated RBC % 0 08/24/19 06:10: Sodium 138, Potassium 3.6, Chloride 108 H, Carbon Dioxide 26.0, Anion Gap 4 L, BUN 2 L, Creatinine 0.74, Estim Creat Clear Calc 112.03, Est GFR (MDRD) Af Amer 121, Est GFR (MDRD) Non-Af 100, BUN/Creatinine Ratio 2.7 L, Glucose 103, Calcium 8.4 L, Total Bilirubin 2.50 H, AST 111 H, ALT 228 H, Alkaline Phosphatase 271 H, Total Protein 6.8, Albumin 3.0 L, Globulin 3.8, Albumin/Globulin Ratio 0.8 L Current Medications Amitriptyline HCl (Elavil) 25 mg PO QHS [facility] Last Admin: 08/23/19 21:19 Dose: 25 mg Documented by: Benzonatate (Tessalon Perle) 200 mg PO TID [facility] Last Admin: 08/24/19 05:40 Dose: 200 mg Documented by: Bisacodyl (Dulcolax) 10 mg RECTAL DAILY PRN PRN Reason: Constipation Diazepam (Valium) 5 mg PO TID PRN PRN PRN Reason: ANXIETY Last Admin: 08/23/19 22:41 Dose: 5 mg Documented by: Guaifenesin (Mucinex) 1,200 mg PO BID [facility] Last Admin: 08/23/19 21:19 Dose: 1,200 mg Documented by: Sodium Chloride () 1,000 mls @ 150 mls/hr IV .[id number] [facility] Last Admin: 08/24/19 06:47 Dose: 150 mls/hr Documented by: Famotidine 20 mg/ Sodium (Chloride) 10 mls @ 300 mls/hr IV Q12 [facility] Last Infusion: 08/23/19 21:20 Dose: Infused Documented by: Sodium Chloride () 250 mls @ 15 mls/hr IV .[id number] PRN PRN Reason: Saline Flush Sodium Chloride () 250 mls @ 15 mls/hr IV .[id number] PRN PRN Reason: Additional IVPB Infusion Cefotetan Disodium 2 gm/ (Sodium Chloride) 100 mls @ 200 mls/hr IV SEND TO OR W/PATIENT ONE Stop: 08/24/19 08:29 Ibuprofen (Motrin) 200 mg PO Q6H PRN PRN PRN Reason: Pain Score 1-3/10 or T>100.4 F Last Admin: 08/23/19 23:48 Dose: 200 mg Documented by: Lorazepam (Ativan) 1 mg IV Q6H PRN PRN PRN Reason: ANXIETY Last Admin: 08/23/19 01:25 Dose: 1 mg Documented by: Morphine Sulfate () 2 mg IV Q3H PRN PRN PRN Reason: Pain Score 6-10/10 Last Admin: 08/24/19 02:21 Dose: 2 mg Documented by: Nicotine (Nicoderm Cq (Pbkc)) 21 mg TRANSDERM. DAILY EZRA Last Admin: 08/23/19 10:48 Dose: 21 mg Documented by: Nicotine Polacrilex (Rugby Nicotine (Bkc)) 2 mg PO Q2H PRN PRN PRN Reason: Nicotine Craving Ondansetron HCl (Zofran) 4 mg IV Q8H PRN PRN PRN Reason: NAUSEA/VOMITING Last Admin: 08/24/19 02:21 Dose: 4 mg Documented by: Oxycodone HCl (Oxyir) 5 mg PO Q4H PRN PRN PRN Reason: Pain Score 4-5/10 Last Admin: 08/24/19 03:10 Dose: 5 mg Documented by: Promethazine HCl (Phenergan) 6.25 mg IV Q6H PRN PRN PRN Reason: NAUSEA/VOMITING Last Admin: 08/24/19 05:44 Dose: 6.25 mg Documented by: Sodium Chloride () 10 - 40 ml IV UD PRN PRN Reason: SALINE FLUSH Last Admin: 08/24/19 05:48 Dose: 15 ml Documented by: Medical Necessity - Tobacco Use Smoking Status: Current every day smoker Tobacco Use: Cigarettes Assessment/Plan All Active Problems Obstructive jaundice (Acute) Gallstone pancreatitis (Acute) Hyperbilirubinemia (Acute) 24-year-old female with a obstructive jaundice and gallstone pancreatitis 1. Patient had ERCP 2 days ago and 2 large stones were cleared from her common bile duct. Her LFTs were decreasing yesterday. Plan for laparoscopic cholecystectomy today. Her LFTs have increased since yesterday and she still having some abdominal pain. Another stone may have moved out of the gallbladder into the common duct in the interim. I will perform laparoscopic cholecystectomy today with possible common bile duct exploration. 2. I discussed the procedure in detail with the patient. I discussed the risks, benefits, and alternatives of the procedure. I discussed the risks including but not limited to bleeding, infection, injury to surrounding organs such as the liver, bile duct, bowels. I did discuss the possibility of having to convert to an open procedure as well as the possibility that if any injuries occurred this may necessitate further surgery at a tertiary care center. Dennys Petty MD Pager: [facility] [address] [place] [address], [address] [place] [address] Office:
--- NOTE | 2019-08-24 10:12 | PN_ITS ---
Patient Problems: Active and Suspected Problems Obstructive jaundice (Acute) Gallstone pancreatitis (Acute) Choledocholithiasis (Suspected) Hyperbilirubinemia (Acute) Reason for Visit: Gallstone pancreatitis. Choledocholithiasis. Right upper quadrant abdominal pain Objective: Patient does not have any fever chills tachypnea or hypoxia. Complain of mild cough. Vitals/I&O's: Vital Signs Temp Pulse Resp BP Pulse Ox 97.2 F L 52 L 16 158/79 H 100 08/24/19 10:08 08/24/19 10:08 08/24/19 10:08 08/24/19 10:08 08/24/19 10:08 Oxygen Delivery Method Room Air Weight: 144 lb 6.444 oz Body Mass Index (BMI) 22.6 Intake and Output for Last 24 Hours 08/22/19 08/23/19 08/24/19 23:59 23:59 23:59 Intake Total 2827 / 2827 7295.0 / 8195.0 1899 / 1900 Balance 2827 / 2827 7295.0 / 8195.0 1899 General: Alert, Oriented x3, Cooperative HEENT: Atraumatic, PERRLA, EOMI, Normocephalic Neck: Supple, No JVD, Negative Carotid Bruits Lungs: Clear to auscultation, No rhonchi, No wheeze, No rales Cardiovascular: Regular rate, Regular Rhythm, Normal S1, Normal S2, No murmurs Abdomen: Bowel Sounds Present, Soft, Non Tender, Non-Distended Extremities: No edema, Capillary Refill Less than 3 Seconds Skin: No rashes, No breakdown Musculoskeletal: No Tenderness to Palpation of Joints or Extremities, Arthritic Changes Neurological: Cranial nerves II-XII grossly intact, Deep Tendon Reflexes 2+/4 and Symmetrical, Neuro grossly intact Psych/Mental Status: Normal Affect, Appropriate Laboratory Results 08/24/19 06:10: WBC 7.2, RBC 4.69, Hgb 14.2, Hct 42.2, MCV 90.0 D, MCH 30.3, MCHC 33.6, RDW Std Deviation 37.4, RDW Coeff of Mia 11.5 L, Plt Count 291, MPV 9.5, Immature Gran % (Auto) 0.400, Neut % (Auto) 77.7 H, Lymph % (Auto) 15.0 L, [place] % (Auto) 5.4, Eos % (Auto) 1.1, Baso % (Auto) 0.4, Absolute Neuts (auto) 5.6, Absolute Lymphs (auto) 1.08, Nucleated RBC % 0 08/24/19 06:10: Sodium 138, Potassium 3.6, Chloride 108 H, Carbon Dioxide 26.0, Anion Gap 4 L, BUN 2 L, Creatinine 0.74, Estim Creat Clear Calc 112.03, Est GFR (MDRD) Af Amer 121, Est GFR (MDRD) Non-Af 100, BUN/Creatinine Ratio 2.7 L, Glucose 103, Calcium 8.4 L, Total Bilirubin 2.50 H, AST 111 H, ALT 228 H, Alkaline Phosphatase 271 H, Total Protein 6.8, Albumin 3.0 L, Globulin 3.8, Albumin/Globulin Ratio 0.8 L Current Medications Amitriptyline HCl (Elavil) 25 mg PO QHS [facility] Last Admin: 08/23/19 21:19 Dose: 25 mg Documented by: Benzonatate (Tessalon Perle) 200 mg PO TID [facility] Last Admin: 08/24/19 05:40 Dose: 200 mg Documented by: Bisacodyl (Dulcolax) 10 mg RECTAL DAILY PRN PRN Reason: Constipation Diazepam (Valium) 5 mg PO TID PRN PRN PRN Reason: ANXIETY Last Admin: 08/23/19 22:41 Dose: 5 mg Documented by: Guaifenesin (Mucinex) 1,200 mg PO BID [facility] Last Admin: 08/23/19 21:19 Dose: 1,200 mg Documented by: Sodium Chloride () 1,000 mls @ 150 mls/hr IV .Q6H40M [facility] Last Admin: 08/24/19 06:47 Dose: 150 mls/hr Documented by: Famotidine 20 mg/ Sodium (Chloride) 10 mls @ 300 mls/hr IV Q12 [facility] Last Infusion: 08/23/19 21:20 Dose: Infused Documented by: Sodium Chloride () 250 mls @ 15 mls/hr IV .[id number] PRN PRN Reason: Saline Flush Sodium Chloride () 250 mls @ 15 mls/hr IV .[id number] PRN PRN Reason: Additional IVPB Infusion Ibuprofen (Motrin) 200 mg PO Q6H PRN PRN PRN Reason: Pain Score 1-3/10 or T>100.4 F Last Admin: 08/23/19 23:48 Dose: 200 mg Documented by: Lorazepam (Ativan) 1 mg IV Q6H PRN PRN PRN Reason: ANXIETY Last Admin: 08/23/19 01:25 Dose: 1 mg Documented by: Morphine Sulfate () 2 mg IV Q3H PRN PRN PRN Reason: Pain Score 6-10/10 Last Admin: 08/24/19 02:21 Dose: 2 mg Documented by: Nicotine (Nicoderm Cq (Pbkc)) 21 mg TRANSDERM. DAILY [facility] Last Admin: 08/23/19 10:48 Dose: 21 mg Documented by: Nicotine Polacrilex (Rugby Nicotine (Bkc)) 2 mg PO Q2H PRN PRN PRN Reason: Nicotine Craving Ondansetron HCl (Zofran) 4 mg IV Q8H PRN PRN PRN Reason: NAUSEA/VOMITING Last Admin: 08/24/19 02:21 Dose: 4 mg Documented by: Oxycodone HCl (Oxyir) 5 mg PO Q4H PRN PRN PRN Reason: Pain Score 4-5/10 Last Admin: 08/24/19 03:10 Dose: 5 mg Documented by: Promethazine HCl (Phenergan) 6.25 mg IV Q6H PRN PRN PRN Reason: NAUSEA/VOMITING Last Admin: 08/24/19 05:44 Dose: 6.25 mg Documented by: Sodium Chloride () 10 - 40 ml IV UD PRN PRN Reason: SALINE FLUSH Last Admin: 08/24/19 05:48 Dose: 15 ml Documented by: STROKE Vital Signs/Narrative: Vital Signs Temp Pulse Resp BP Pulse Ox 08/24/19 10:08 97.2 F L 52 L 16 158/79 H 100 08/24/19 08:19 97.2 F L 52 L 16 158/79 H 100 08/24/19 07:53 97 Medical Necessity - Tobacco Use Smoking Status: Current every day smoker Tobacco Use: Cigarettes Assessment/Plan All Active Problems Obstructive jaundice (Acute) Gallstone pancreatitis (Acute) Hyperbilirubinemia (Acute) This is a 24-year-old female with past medical history of fibromyalgia is being admitted with abdominal pain and found to have elevated LFTs, obstructive jaundice and intrahepatic biliary dilatation seen on CT scan of the abdomen. 1. Acute gallstone pancreatitis with choledocholithiasis: Patient had ERCP done and to stones were removed from CBD. LFTs are improving. Lipase is normal. Admitting lipase was 2291. Laparoscopic cystectomy planned for Friday. Patient was seen by surgeon and started on diet today and n.p.o. after midnight for lap [place] tomorrow a.m. Continue with IV fluids, famotidine, repeat blood work in a.m. 08/24: Patient complain of mild cough but denies sore throat or postnasal drip. No fever or chills. Flu test ordered. Chest x-ray PA and lateral ordered. Labs reviewed. No leukocytosis. ALT AST spiked after initial decline. Alkaline phosphatase 271. Total bili 2.5. 2. Anxiety/depression/fibromyalgia, on amitriptyline and Valium,: Patient is on Valium 5 mg 3 times daily not clear region probably anxiety/depression fibromyalgia. Valium resume on PRN basis. Patient also constantly asked for morphine as per nursing staff. 3. Nicotine dependence, on replacement 4. DVT PPx- early ambulation Laboratory Results 08/23/19 05:38: WBC 6.2, RBC 3.64 L, Hgb 12.6, Hct 36.0 L, MCV 98.9 D, MCH 34.6 H, MCHC 35.0, RDW Std Deviation 45.9 H, RDW Coeff of Mia 14.4, Plt Count 162, MPV 10.4, Immature Gran % (Auto) 0.600, Neut % (Auto) 79.9 H, Lymph % (Auto) 14.2 L, [place] % (Auto) 4.4, Eos % (Auto) 0.6, Baso % (Auto) 0.3, Absolute Neuts (auto) 4.9, Absolute Lymphs (auto) 0.88, Nucleated RBC % 0 08/23/19 05:38: Sodium 134 L, Potassium 4.2, Chloride 101, Carbon Dioxide 22.0, Anion Gap 11, BUN 34 H, Creatinine 1.37 H, Estim Creat Clear Calc 60.51, Est GFR (MDRD) Af Amer 60, Est GFR (MDRD) Non-Af 49 L, BUN/Creatinine Ratio 24.8 H, Glucose 228 H, Calcium 8.4 L, Total Bilirubin 1.10 H, AST 36, ALT 71 H, Alkaline Phosphatase 129 H, Total Protein 6.2 L, Albumin 2.9 L, Globulin 3.3, Albumin/Globulin Ratio 0.9, Lipase 78 Clinical Impression(s) from Imaging Studies ERCP X-Ray 08/22/19 10:30 IMPRESSION: Limited exam (single image only). Please see ERCP report. Code Visit Inpatient E&M: 38248 Subs Hosp L3
--- NOTE | 2019-08-24 10:14 | RAD_ITS ---
STUDY: X-RAY CHEST REASON FOR EXAM: Female, 24 years old. Cough. Elevated LFTs. TECHNIQUE: Frontal and lateral views of the chest. COMPARISON: None. FINDINGS: Low volume inspiration with bibasilar atelectasis. Vascular crowding. There is no demonstrated pleural abnormality. Normal size heart. Normal mediastinum and daysi. Normal visualized pulmonary arteries. Normal visualized aortic arch and descending thoracic aorta. Normal visualized thoracic spine. Normal visualized ribs, clavicles, and shoulders. There is no demonstrated abnormality of the visualized soft tissue structures of the upper abdomen. RAD/Chest PA and Lateral IMPRESSION: Low volume inspiration with bibasilar atelectasis and no acute finding. Electronically Signed: Speedy Hansen MD at 15:08 EST , Service support ,
--- NOTE | 2019-08-24 10:28 | NURSING ---
Radiology called for pt as she has CXR ordered. Pt off floor for surgery, AC aware.
--- NOTE | 2019-08-24 11:05 | RAD_ITS ---
CLINICAL HISTORY: Female, 24 years old. Cholangiogram. PROCEDURE: CHOLANGIOGRAM FLUOROSCOPY TIME (if supplied): (1.17 minutes.) TECHNIQUE: Multiple, cine and spot images of the right upper quadrant during cholangiogram are obtained/submitted. The opacified intrahepatic bile ducts appear unremarkable. The common bile duct appears mildly ectatic. Multiple filling defects are seen within the proximal to mid segment that may represent air bubbles versus calculi. RAD/Cholangiogram/ O R,Initial IMPRESSION: Fluoroscopy services provided for clinical procedure. Please refer to operating physician''s procedure note for additional detail. Unremarkable appearing intrahepatic bile ducts. Filling defects potentially representing air bubbles versus calculi are seen within the common bile duct just distal to the access site. Fluoroscopy time 1.17 minutes. Electronically Signed: Boni Canela MD at 9:40 EST , Service support ,
[2019-08-24] MEDS: Bupiv/Epi 0.25% 30 ML Vial (12:23)
--- NOTE | 2019-08-24 12:45 | OP.PCM_ITS ---
Problem List (1) Obstructive jaundice Status: Acute (2) Gallstone pancreatitis Status: Acute Report of Operation Date of Procedure: 08/24/19 Pre-Operative Diagnosis: Gallstone pancreatitis and choledocholithiasis Post-Operative Diagnosis: Gallstone pancreatitis and acute cholecystitis Surgery/Procedure Performed:: Laparoscopic cholecystectomy with cholangiogram Specimen's removed: Gallbladder and contents Description of Procedure: After obtaining informed consent patient was brought back to the operating room. General anesthesia was induced. The abdomen was prepped and draped in usual sterile fashion. A small midline incision was made superior to the umbilicus and deepened to the level of fascia. The fascia was elevated and incised. Next the peritoneum was elevated and incised in the same fashion. Finger sweep was performed and the Nettles trocar was placed into the abdomen. The balloon was inflated. The abdomen was inflated to 15 mmHg. Next a camera was introduced into the abdomen and the abdomen was inspected. Next under direct visualization three 5-mm ports were placed one subxiphoid and 2 subcostal. Next the gallbladder was elevated and retracted toward the right shoulder. The peritoneum was stripped from the gallbladder. The infundibulum was located and retracted laterally. Next the triangle of Calot was dissected and the cystic duct and cystic artery were identified. Cholangiograms were performed. A proximal clip was placed on the cystic duct. The cystic duct was extremely pura rt. A small whitley was made in the anterior cystic duct and the Ranfac catheter was placed through this. A clip was applied over the catheter. Under fluoroscopy contrast was instilled into the gallbladder and the common duct, cystic duct as well as proximal hepatic ducts were identified. There was good filling of the duodenum. There were no filling defects noted in the common bile duct. The common bile duct was dilated. The clip was removed as well as the Ranfac and the infundibulum was grasped once more. Three hemolock clips were placed across the cystic duct. These were placed as proximal and the cystic duct is possible but it was very short. The cystic duct was then divided leaving 2 clips on the stump. The cystic artery was clipped and divided in the same fashion. The hook cautery was then used to take the gallbladder off of the gallbladder bed. Hemostasis was obtained. Gallbladder fossa was irrigated and no active bleeding or bile leakage was noted. Next the camera switched to a 5 mm camera and introduced in the subxiphoid port. An Endopouch bag was placed through the umbilical port and the gallbladder was placed into it. The gallbladder was then removed through the umbilical incision. The camera was then reinserted through the umbilical port. The gallbladder fossa was inspected once more and noted to be hemostatic with no leaking bile. The abdomen was orellana ctioned dry. The 5 mm ports were removed under direct visualization. The umbilical port was then removed and the air was removed from the abdomen. Next using an 0 Vicryl suture the umbilical fascia was closed in a [id number] fashion. The umbilical port site was irrigated local anesthetic was administered to all the incisions. All the incisions were closed with interrupted subcuticular 4-0 Monocryl sutures followed by Steri-Strips and dressings. The patient was awoken and taken to PACU in stable condition. - Admit VTE Documentation VTE Mechan Device Prophylaxis: SCD's
[2019-08-24] MEDS: Bisacodyl 10 MG Suppository RECTAL (14:44)
[2019-08-24] MEDS: Polyethylene Glycol 3350 17 GM PACKET PO (14:44)
[2019-08-24] MEDS: diazePAM 5 MG Tablet PO ×2 (15:36→20:16)
[2019-08-24] MEDS: guaiFENesin 1,200 MG Tablet 1200 MG PO (21:59)
[2019-08-24] MEDS: Amitriptyline 25 MG Tablet PO (21:59)
[2019-08-24] MEDS: Famotidine 200 MG/20 ML MDV 20 MG in 0.9% Normal Saline (Pres. free 8 ML 300 MG IV (22:52)
[2019-08-25 04:08] VITALS: BP 150/104; PULSE 62; RESP 18; TEMP 36.6; O2SAT 100
[2019-08-25] MEDS: 0.9% Normal Saline 1,000 ML 150 ML IV (04:09)
[2019-08-25] MEDS: oxyCODONE 5 MG Tablet PO (04:13)
[2019-08-25] MEDS: 0.9% Saline Lock 10 ML Syringe IV ×2 (04:16→10:11)
[2019-08-25] MEDS: Benzonatate 100 MG Capsule 200 MG PO (05:24)
[2019-08-25 06:41] LABS: Absolute Lymphocyte Count 2.24 X10^3/uL (0.83-4.51); Absolute Neutrophil Count 9.9 X10^3/uL (2.0-7.7); Basophil# 0.03 X10^3/uL; Basophil% 0.2 % (0-1); Eosinophil# 0.03 X10^3/uL; Eosinophils% 0.2 % (0-5); Hemoglobin 14.1 g/dL (12.0-15.0); Lymphocyte # 2.24 X10^3/ul (4.0); Mean Corp Hgb Conc 33.6 g/dL (32-36); Mean Corpuscular Hgb 30.1 pg (27.0-32.0); Mean Corpuscular Volume 89.6 fL (81-99); Mean Platelet Vol. 9.9 fl (6.2-12.0); Monocyte# 0.91 X10^3/uL; Monocyte% 6.9 % (0-10); NRBC Flagged by Analyzer 0 % (0-5); Neutrophil # 9.93 X10^3/uL (2.7-7.7); Neutrophil % 75.3 % (47-70); Platelet Count 296 K/mm3 (150-450); RBC Distribution Width CV 11.6 % (11.6-14.6); RBC Distribution Width SD 37.5 fl (35.1-43.9); Red Blood Count 4.69 M/mm3 (4.2-5.4); White Blood Count 13.2 K/mm3 (4.4-11.0)
[2019-08-25 07:11] LABS: ALB/GLOB Ratio 0.8 RATIO (0.9-2.4); AST(SGOT) 76 U/L (15-37); Alanine Aminotransfer ALT/SGPT 201 U/L (13-56); Albumin, Serum 2.9 g/dL (3.2-5.0); Alkaline Phosphatase 264 U/L (45-117); Anion Gap 7 (5-15); BUN 2 mg/dL (7-18); Chloride 108 mmol/L (98-107); Creatinine, Serum 0.67 mg/dL (0.55-1.02); EST Glomerular Filtration Rate 112 mL/min (>60); Est Glom Filt Rate - Afr Amer 136 mL/min (>60); Estimated Creatinine Clearance 123.74 ml/min; Globulin 3.8 g/dL (2.2-4.2); Glucose 81 mg/dL (74-106); Potassium 3.6 mmol/L (3.5-5.1); Protein, Total 6.7 g/dL (6.4-8.2); Sodium Level 142 mmol/L (136-145)
[2019-08-25 08:00] VITALS: BP 121/59; PULSE 53; RESP 18; TEMP 37; O2SAT 100
--- NOTE | 2019-08-25 08:24 | PCM.PN.SRG ---
Patient Problems: Active and Suspected Problems Obstructive jaundice (Acute) Gallstone pancreatitis (Acute) Choledocholithiasis (Suspected) Hyperbilirubinemia (Acute) Subjective: Patient seems to be doing well. She says she is in less pain with no nausea or vomiting. - Physical Exam Vitals/I&O's: Vital Signs Temp Pulse Resp BP Pulse Ox 97.9 F 62 18 150/104 H 100 08/25/19 04:08 08/25/19 04:08 08/25/19 04:08 08/25/19 04:08 08/25/19 04:08 Oxygen Delivery Method Room Air Weight: 144 lb 6.444 oz Body Mass Index (BMI) 22.6 Intake and Output for Last 24 Hours 08/23/19 08/24/19 08/25/19 23:59 23:59 23:59 Intake Total 7295.0 / 8195.0 7117.5 / 7117.5 1400 / 1400 Output Total 1400 / 1400 Balance 7295.0 / 8195.0 5717.5 / 5717.5 1400 / 1400 General: Alert, Oriented x3 Lungs: Normal air movement Cardiovascular: Regular rate, Regular Rhythm Abdomen: Soft, Non-Distended, Tender - Mild diffuse tenderness Microbiology Past 72 Hours 08/24/19 15:13 Mucosa - Nose - Final Laboratory Results 08/25/19 06:05: WBC 13.2 H, RBC 4.69, Hgb 14.1, Hct 42.0, MCV 89.6, MCH 30.1, MCHC 33.6, RDW Std Deviation 37.5, RDW Coeff of Mia 11.6, Plt Count 296, MPV 9.9, Immature Gran % (Auto) 0.400, Neut % (Auto) 75.3 H, Lymph % (Auto) 17.0 L, Labette % (Auto) 6.9, Eos % (Auto) 0.2, Baso % (Auto) 0.2, Absolute Neuts (auto) 9.9 H, Absolute Lymphs (auto) 2.24, Nucleated RBC % 0 08/25/19 06:05: Sodium 142, Potassium 3.6, Chloride 108 H, Carbon Dioxide 27.0, Anion Gap 7, BUN 2 L, Creatinine 0.67, Estim Creat Clear Calc 123.74, Est GFR (MDRD) Af Amer 136, Est GFR (MDRD) Non-Af 112, BUN/Creatinine Ratio 3.0 L, Glucose 81, Calcium 9.0, Total Bilirubin 1.10 H, AST 76 H, ALT 201 H, Alkaline Phosphatase 264 H, Total Protein 6.7, Albumin 2.9 L, Globulin 3.8, Albumin/Globulin Ratio 0.8 L Current Medications Amitriptyline HCl (Elavil) 25 mg PO QHS [facility] Last Admin: 08/24/19 21:59 Dose: 25 mg Documented by: Benzonatate (Tessalon Perle) 200 mg PO TID [facility] Last Admin: 08/25/19 05:24 Dose: 200 mg Documented by: Bisacodyl (Dulcolax) 10 mg RECTAL DAILY PRN PRN Reason: Constipation Diazepam (Valium) 5 mg PO TID PRN PRN PRN Reason: ANXIETY Last Admin: 08/24/19 20:16 Dose: 5 mg Documented by: Guaifenesin (Mucinex) 1,200 mg PO BID [facility] Last Admin: 08/24/19 21:59 Dose: 1,200 mg Documented by: Sodium Chloride () 1,000 mls @ 150 mls/hr IV .[id number] [facility] Last Admin: 08/25/19 04:09 Dose: 150 mls/hr Documented by: Famotidine 20 mg/ Sodium (Chloride) 10 mls @ 300 mls/hr IV Q12 [facility] Last Infusion: 08/24/19 22:54 Dose: Infused Documented by: Sodium Chloride () 250 mls @ 15 mls/hr IV .[id number] PRN PRN Reason: Saline Flush Sodium Chloride () 250 mls @ 15 mls/hr IV .[id number] PRN PRN Reason: Additional IVPB Infusion Ibuprofen (Motrin) 200 mg PO Q6H PRN PRN PRN Reason: Pain Score 1-3/10 or T>100.4 F Last Admin: 08/23/19 23:48 Dose: 200 mg Documented by: Lorazepam (Ativan) 1 mg IV Q6H PRN PRN PRN Reason: ANXIETY Last Admin: 08/23/19 01:25 Dose: 1 mg Documented by: Morphine Sulfate () 2 mg IV Q3H PRN PRN PRN Reason: Pain Score 6-10/10 Last Admin: 08/24/19 02:21 Dose: 2 mg Documented by: Nicotine (Nicoderm Cq (Pbkc)) 21 mg TRANSDERM. DAILY [facility] Last Admin: 08/24/19 14:44 Dose: 21 mg Documented by: Nicotine Polacrilex ([place] Nicotine (Bkc)) 2 mg PO Q2H PRN PRN PRN Reason: Nicotine Craving Ondansetron HCl (Zofran) 4 mg IV Q8H PRN PRN PRN Reason: NAUSEA/VOMITING Last Admin: 08/24/19 02:21 Dose: 4 mg Documented by: Oxycodone HCl (Oxyir) 5 mg PO Q4H PRN PRN PRN Reason: Pain Score 4-5/10 Last Admin: 08/25/19 04:13 Dose: 5 mg Documented by: Promethazine HCl (Phenergan) 6.25 mg IV Q6H PRN PRN PRN Reason: NAUSEA/VOMITING Last Admin: 08/24/19 05:44 Dose: 6.25 mg Documented by: Sodium Chloride () 10 - 40 ml IV UD PRN PRN Reason: SALINE FLUSH Last Admin: 08/25/19 04:16 Dose: 10 ml Documented by: Medical Necessity - Tobacco Use Smoking Status: Current every day smoker Tobacco Use: Cigarettes Assessment/Plan All Active Problems Obstructive jaundice (Acute) Gallstone pancreatitis (Acute) Hyperbilirubinemia (Acute) 24-year-old female status post ERCP and laparoscopic cholecystectomy for gallstone pancreatitis and choledocholithiasis 1. Patient appears to be doing well and LFTs are downtrending. She is okay for DC home from my standpoint. Follow-up with me in 2 weeks. Dennys Petty MD Pager: [facility] [address] [place] [address], [address] [place] [address] Office:
--- NOTE | 2019-08-25 08:25 | DCINST_ITS ---
Discharge Diet: Light diet - advance as tolerated Discharge Activity: Return to Normal Activity, May Not Drive - for 2-3 days or while taking narcotic pain medicataions., May Shower May shower in (days): 1 - with the bandage in place. Lifting Restrictions: 20 lbs for 2 weeks Additional Activity Instructions:: Pain medication may cause nausea. You should typically eat light foods as you take your pain medications. Pain medication may also cause constipation. If this is a problem for you, please discuss with your doctor. Call your doctor if your incision/area has: Continuous Slow Oozing, Sudden Increased Bleeding, Increased Pain/ Swelling, Increased Redness, Foul Smelling Discharge, Fever of 101 or Higher Call your doctor if you observe: Fever of 101 or Higher Suture Line Care: Avoid Pulling/Pushing, Avoid Pinching/Bending Additional Dressing/Incision Instructions:: Leave operative bandaids on for 2 days. When you remove dressing, leave Steri-Strips on until your follow-up appointment, or until the Steri-Strips fall off on their own. Allergies/Adverse Reactions: Allergies acetaminophen [From [place]] Allergy (Verified 04/30/19 11:12) Rash gabapentin Allergy (Verified 04/30/19 11:12) Nausea hydrocodone [From [place]] Allergy (Verified 04/30/19 11:12) Rash naproxen Allergy (Verified 04/30/19 11:12) Nausea sulfamethoxazole [From [place]] Allergy (Verified 04/30/19 11:12) Unknown trimethoprim [From [facility]] Allergy (Verified 04/30/19 11:12) Unknown Medications to take at Discharge Amitriptyline HCl [Elavil] 25 mg PO QHS 02/04/15 Diazepam [Valium] 5 mg PO TID 08/22/19 Ibuprofen 800 mg PO TID 08/22/19 Ibuprofen [Motrin] 200 mg PO Q6H PRN PRN tablet 08/25/19 Oxycodone [Oxyir] 5 mg PO Q6H PRN PRN 7 Days #30 tablet 08/25/19 The following prescriptions were given: Oxycodone [Oxyir] 5 mg PO Q6H PRN PRN 7 Days #30 tablet PRN Reason: Pain Score 4-5/10 Transmission Status: Received by [facility]/pharmacy #[id number] Primary Care Physician: Alexis,Tenzin, DO [Primary Care Provider] - Test Results: Test results from this visit will be discussed in further detail at your follow- up appointment, if applicable. Please Follow Up With: Dennys Petty MD When: Please call to schedule 2 week follow up appointment. [phone]
--- NOTE | 2019-08-25 09:00 | DCINST_ITS ---
- Discharge Diagnoses Current Active Problems: Current Active and Chronic Problems Obstructive jaundice (Acute) Gallstone pancreatitis (Acute) Hyperbilirubinemia (Acute) Anxiety (Chronic) Depression (Chronic) Fibromyalgia (Chronic) You will use the following diet at home:: Regular Your food should be the consistency of: Regular Discharge Activity: Return to Normal Activity, May Not Drive - for 2-3 days or while taking narcotic pain medicataions., May Shower May shower in (days): 1 - with the bandage in place. Additional Activity Instructions:: Pain medication may cause nausea. You should typically eat light foods as you take your pain medications. Pain medication may also cause constipation. If this is a problem for you, please discuss with your doctor. Call your doctor if your incision/area has: Continuous Slow Oozing, Sudden Increased Bleeding, Increased Pain/ Swelling, Increased Redness, Foul Smelling Discharge, Fever of 101 or Higher Call your doctor if you observe: Fever of 101 or Higher, Coldness, Increased Pain, Numbness or Tingling, Inability to have a bowel movement, Shortness of breath, Dizziness, Fainting spells, Swelling in the ankles, Chest pain, Prolonged hiccoughing, Increased palpitations (irregular heartbeat), Calf discomfort, Uncontrolled pain Suture Line Care: Avoid Pulling/Pushing, Avoid Pinching/Bending Additional Dressing/Incision Instructions:: Leave operative bandaids on for 2 days. When you remove dressing, leave Steri-Strips on until your follow-up appointment, or until the Steri-Strips fall off on their own. Allergies/Adverse Reactions: Allergies acetaminophen [From [place]] Allergy (Verified 04/30/19 11:12) Rash gabapentin Allergy (Verified 04/30/19 11:12) Nausea hydrocodone [From [place]] Allergy (Verified 04/30/19 11:12) Rash naproxen Allergy (Verified 04/30/19 11:12) Nausea sulfamethoxazole [From [facility]] Allergy (Verified 04/30/19 11:12) Unknown trimethoprim [From [facility]] Allergy (Verified 04/30/19 11:12) Unknown Medications to take at Discharge Amitriptyline HCl [Elavil] 25 mg PO QHS 02/04/15 Diazepam [Valium] 5 mg PO TID 08/22/19 Ibuprofen 800 mg PO TID 08/22/19 Docusate Sodium [Colace] 100 mg PO BID 10 Days #20 cap 08/25/19 Ibuprofen [Motrin] 200 mg PO Q6H PRN PRN tab 08/25/19 Oxycodone [Oxyir] 5 mg PO Q6H PRN PRN 7 Days #30 tab 08/25/19 The following prescriptions were given: Docusate Sodium [Colace] 100 mg PO BID 10 Days #20 cap Transmission Status: Received by [facility]pharmacy #[id number] Oxycodone [Oxyir] 5 mg PO Q6H PRN PRN 7 Days #30 tab PRN Reason: Pain Score 4-5/10 Transmission Status: Received by [id number] Primary Care Physician: Tenzin Espinoza DO [Primary Care Provider] - Test Results: Test results from this visit will be discussed in further detail at your follow- up appointment, if applicable. Please Follow Up With: Dennys Petty MD When: Please call to schedule 2 week follow up appointment. [phone]
--- NOTE | 2019-08-25 09:53 | DS.PCM_ITS ---
Discharge Date and Diagnosis Date of Admission: 08/22/19 Date of Discharge: 08/25/19 - Primary Discharge Diagnosis Active and Suspected Problems Obstructive jaundice (Acute) Gallstone pancreatitis (Acute) Choledocholithiasis (Suspected) Hyperbilirubinemia (Acute) - Secondary Discharge Diagnosis Chronic Problems Anxiety (Chronic) Depression (Chronic) Fibromyalgia (Chronic) Hospital Course and Treatment Summary of Care Provided: [] This is a 24-year-old female with past medical history of fibromyalgia is being admitted with abdominal pain and found to have elevated LFTs, obstructive jaundice and intrahepatic biliary dilatation seen on CT scan of the abdomen. 1. Acute gallstone pancreatitis with choledocholithiasis: Patient had ERCP done and to stones were removed from CBD. LFTs are improving. Lipase is normal. Admitting lipase was 2291. Patient had lap china done on 08/24/2019. Patient tolerated the procedure well. No postoperative significant complication. Patient discharged home from surgical site. Follow-up surgeon. 2. Anxiety/depression/fibromyalgia, on amitriptyline and Valium,: Patient is on Valium 5 mg 3 times daily not clear region probably anxiety/depression fibromyalgia. Valium resume on PRN basis. 3. Nicotine dependence, on replacement 4. DVT PPx- early ambulation Discharge medication reconciliation done. Discharge follow-up instructions completed. Discharge process discussed with the patient and all questions were answered to patient's satisfaction. Patient has been discharged from surgical service. Follow-up with surgeon in 1 to 2 weeks. Total time spent, exact 35 minutes on discharge meds reconciliation, examination, review of imaging and blood test and discussion with the patient on follow-up instructions. Subjective: Seen and examined. Patient denies abdominal pain. Patient tolerated diet well. - Physical Exam Vitals/I&O's: Vital Signs Temp Pulse Resp BP Pulse Ox 98.6 F 53 L 18 121/59 H 100 08/25/19 08:00 08/25/19 08:00 08/25/19 08:00 08/25/19 08:00 08/25/19 08:00 Oxygen Delivery Method Room Air Weight: 144 lb 6.444 oz Body Mass Index (BMI) 22.6 Intake and Output for Last 24 Hours 08/23/19 08/24/19 08/25/19 23:59 23:59 23:59 Intake Total 7295.0 / 8195.0 7117.5 / 7117.5 2084 Output Total 1400 / 1400 Balance 7295.0 / 8195.0 5717.5 / 5717.5 2084 General: Alert, Oriented x3, Cooperative HEENT: Atraumatic, PERRLA, EOMI, Normocephalic Neck: Supple, No JVD, Negative Carotid Bruits Lungs: Clear to auscultation, Normal air movement, No rhonchi, No wheeze, No rales Cardiovascular: Regular rate, Regular Rhythm, Normal S1, Normal S2, No murmurs Abdomen: Bowel Sounds Present, Soft, Non Tender, Non-Distended Extremities: No edema, Capillary Refill Less than 3 Seconds Skin: No rashes, No breakdown Musculoskeletal: No Tenderness to Palpation of Joints or Extremities Neurological: Cranial nerves II-XII grossly intact Psych/Mental Status: Normal Affect, Appropriate Microbiology Past 72 Hours 08/24/19 15:13 Mucosa - Nose - Final Laboratory Results 08/25/19 06:05: WBC 13.2 H, RBC 4.69, Hgb 14.1, Hct 42.0, MCV 89.6, MCH 30.1, MCHC 33.6, RDW Std Deviation 37.5, RDW Coeff of Mia 11.6, Plt Count 296, MPV 9.9, Immature Gran % (Auto) 0.400, Neut % (Auto) 75.3 H, Lymph % (Auto) 17.0 L, Harvey % (Auto) 6.9, Eos % (Auto) 0.2, Baso % (Auto) 0.2, Absolute Neuts (auto) 9.9 H, Absolute Lymphs (auto) 2.24, Nucleated RBC % 0 08/25/19 06:05: Sodium 142, Potassium 3.6, Chloride 108 H, Carbon Dioxide 27.0, Anion Gap 7, BUN 2 L, Creatinine 0.67, Estim Creat Clear Calc 123.74, Est GFR (MDRD) Af Amer 136, Est GFR (MDRD) Non-Af 112, BUN/Creatinine Ratio 3.0 L, Glucose 81, Calcium 9.0, Total Bilirubin 1.10 H, AST 76 H, ALT 201 H, Alkaline Phosphatase 264 H, Total Protein 6.7, Albumin 2.9 L, Globulin 3.8, Albumin/Globulin Ratio 0.8 L Current Medications Amitriptyline HCl (Elavil) 25 mg PO QHS [facility] Last Admin: 08/24/19 21:59 Dose: 25 mg Documented by: Benzonatate (Tessalon Perle) 200 mg PO TID [facility] Last Admin: 08/25/19 05:24 Dose: 200 mg Documented by: Bisacodyl (Dulcolax) 10 mg RECTAL DAILY PRN PRN Reason: Constipation Diazepam (Valium) 5 mg PO TID PRN PRN PRN Reason: ANXIETY Last Admin: 08/24/19 20:16 Dose: 5 mg Documented by: Guaifenesin (Mucinex) 1,200 mg PO BID [facility] Last Admin: 08/24/19 21:59 Dose: 1,200 mg Documented by: Famotidine 20 mg/ Sodium (Chloride) 10 mls @ 300 mls/hr IV Q12 [facility] Last Infusion: 08/24/19 22:54 Dose: Infused Documented by: Sodium Chloride () 250 mls @ 15 mls/hr IV .[id number] PRN PRN Reason: Saline Flush Sodium Chloride () 250 mls @ 15 mls/hr IV .[id number] PRN PRN Reason: Additional IVPB Infusion Ibuprofen (Motrin) 200 mg PO Q6H PRN PRN PRN Reason: Pain Score 1-3/10 or T>100.4 F Last Admin: 08/23/19 23:48 Dose: 200 mg Documented by: Lorazepam (Ativan) 1 mg IV Q6H PRN PRN PRN Reason: ANXIETY Last Admin: 08/23/19 01:25 Dose: 1 mg Documented by: Nicotine (Nicoderm Cq (Pbkc)) 21 mg TRANSDERM. DAILY [facility] Last Admin: 08/24/19 14:44 Dose: 21 mg Documented by: Nicotine Polacrilex ([place] Nicotine (Bkc)) 2 mg PO Q2H PRN PRN PRN Reason: Nicotine Craving Ondansetron HCl (Zofran) 4 mg IV Q8H PRN PRN PRN Reason: NAUSEA/VOMITING Last Admin: 08/24/19 02:21 Dose: 4 mg Documented by: Oxycodone HCl (Oxyir) 5 mg PO Q4H PRN PRN PRN Reason: Pain Score 4-5/10 Last Admin: 08/25/19 04:13 Dose: 5 mg Documented by: Promethazine HCl (Phenergan) 6.25 mg IV Q6H PRN PRN PRN Reason: NAUSEA/VOMITING Last Admin: 08/24/19 05:44 Dose: 6.25 mg Documented by: Sodium Chloride () 10 - 40 ml IV UD PRN PRN Reason: SALINE FLUSH Last Admin: 08/25/19 04:16 Dose: 10 ml Documented by: Discharge Diet: Light diet - advance as tolerated Discharge Activity: Return to Normal Activity, May Not Drive - for 2-3 days or while taking narcotic pain medicataions., May Shower May shower in (days): 1 - with the bandage in place. Additional Activity Instructions:: Pain medication may cause nausea. You should typically eat light foods as you take your pain medications. Pain medication may also cause constipation. If this is a problem for you, please discuss with your doctor. Call your doctor if your incision/area has: Continuous Slow Oozing, Sudden Increased Bleeding, Increased Pain/ Swelling, Increased Redness, Foul Smelling Discharge, Fever of 101 or Higher Call your doctor if you observe: Fever of 101 or Higher, Coldness, Increased Pain, Numbness or Tingling, Inability to have a bowel movement, Shortness of breath, Dizziness, Fainting spells, Swelling in the ankles, Chest pain, Prolonged hiccoughing, Increased palpitations (irregular heartbeat), Calf discomfort, Uncontrolled pain Suture Line Care: Avoid Pulling/Pushing, Avoid Pinching/Bending Additional Dressing/Incision Instructions:: Leave operative bandaids on for 2 d ays. When you remove dressing, leave Steri-Strips on until your follow-up appointment, or until the Steri-Strips fall off on their own. Home Medications: Medications to take at Discharge Amitriptyline HCl [Elavil] 25 mg PO QHS 02/04/15 Diazepam [Valium] 5 mg PO TID 08/22/19 Ibuprofen 800 mg PO TID 08/22/19 Docusate Sodium [Colace] 100 mg PO BID 10 Days #20 cap 08/25/19 Ibuprofen [Motrin] 200 mg PO Q6H PRN PRN tab 08/25/19 Oxycodone [Oxyir] 5 mg PO Q6H PRN PRN 7 Days #30 tab 08/25/19 Following Prescrptions Were Given to Patient: Docusate Sodium [Colace] 100 mg PO BID 10 Days #20 cap Transmission Status: Re[facility] by [id number] Oxycodone [Oxyir] 5 mg PO Q6H PRN PRN 7 Days #30 tab PRN Reason: Pain Score 4-5/10 Transmission Status: Received by [id number] Primary Care Physician: Tenzin Espinoza DO [Primary Care Provider] - Please Follow Up With: Dennys Petty MD When: Please call to schedule 2 week follow up appointment. [phone] Medical Necessity - Tobacco Use Smoking Status: Current every day smoker Tobacco Use: Cigarettes Meaningful Use Info Meaningful Use Diagnoses (Choose all that apply): None applicable Code Visit Inpatient E&M: 94967 Disch Hosp
[2019-08-25] MEDS: guaiFENesin 1,200 MG Tablet 1200 MG PO (10:11)
[2019-08-25] MEDS: Famotidine 200 MG/20 ML MDV 20 MG in 0.9% Normal Saline (Pres. free 8 ML 300 MG IV (10:11)
[2019-08-25 11:17] VITALS: BP 120/74; PULSE 74; RESP 18; TEMP 36.9; O2SAT 98
== END 2019-08-25 11:15 | disposition home or self-care (01) | DRG 263 ==
PROVIDERS: Anesthesiology; Surgery; Admitting Provider Hospitalist; Family Provider Family Medicine; PCP Family Medicine; Visit Provider Internal Medicine
PROC: 0FC98ZZ Extirpation of Matter from Common Bile Duct, Via Natural or Artificial Opening Endoscopic (ICD-10-PCS; CPT 43260; principal; 2019-08-22 10:30)
PROC: 0FT44ZZ Resection of Gallbladder, Percutaneous Endoscopic Approach (ICD-10-PCS; CPT 47610; principal; 2019-08-24 10:45)
DX: K80.51 Calculus of bile duct without cholangitis or cholecystitis with obstruction (principal); K85.10 Biliary acute pancreatitis without necrosis or infection; F32.9 Major depressive disorder, single episode, unspecified; F41.9 Anxiety disorder, unspecified; M79.7 Fibromyalgia; F17.210 Nicotine dependence, cigarettes, uncomplicated
CPT/HCPCS: 36415; 71046; 74300; 74328; 76000; 80053; 82248; 83690; 84703; 85025; 87632; 88304; 93005; 99251; 99406; J7030; A4216; G0463; J1610; J2405; J3490

== ENCOUNTER 2019-09-18 09:44 | Emergency (ER) | payer MEDICAID, SELFPAY ==
[2019-08-24 10:08] VITALS: BMI 22.6
[2019-09-18 09:45] VITALS: BP 126/77; PULSE 94; RESP 16; TEMP 36.2; O2SAT 100; BMI 24.3
--- NOTE | 2019-09-18 10:18 | ED.VIS.GEN ---
History of Present Illness Chief Complaint: Abd Pain Informant: Patient Onset: Weeks - 1 week Context: Gradual Onset Timing: Waxes and wanes Current Severity: Moderate Maximum Severity: Moderate Narrative: Patient presents with abdominal pain for the past 1 week. She reports nausea and diarrhea but no vomiting. She believes she has had a fever but did not measure it. She did have a cholecystectomy 1 month ago. Patient statements her symptoms seem to do okay after the surgery but then she developed right lower quadrant pain a week ago. She has been taking ibuprofen as needed, last dose last evening. - Past Medical History (1) Gallstone pancreatitis Status: Resolved (2) Anxiety Status: Chronic (3) Depression Status: Chronic (4) Fibromyalgia Status: Chronic (5) Choledocholithiasis Status: Resolved Past Medical History - Allergies and Home Meds Allergies/Adverse Reactions: Allergies acetaminophen [From [facility]] Allergy (Verified 09/18/19 10:02) Rash gabapentin Allergy (Verified 09/18/19 10:02) Nausea hydrocodone [From [facility]] Allergy (Verified 09/18/19 10:02) Rash naproxen Allergy (Verified 09/18/19 10:02) Nausea sulfamethoxazole [From Septra] Allergy (Verified 09/18/19 10:02) Unknown trimethoprim [From Septra] Allergy (Verified 09/18/19 10:02) Unknown Primary Care Physician: Tenzin Espinoza DO [Primary Care Provider] - Doctors: Dr. Petty Surgical History: - - Left wrist surgery. Smoking Status: Current every day smoker - Family History Maternal Family History: Reports: Heart Disease Paternal Family History: Reports: No pertinent history Review of Systems General: Reports: Chills, Fever, Subjective Eyes: Denies: Visual changes - bilaterally ENT: Denies: Bilateral ear pain Cardiovascular: Denies: Chest pain Respiratory: Denies: Dyspnea, Cough Gastrointestinal: Reports: Abdominal pain, Nausea, Diarrhea. Denies: Vomiting Genitourinary: Denies: Dysuria, Frequency Musculoskeletal: Denies: Extremity Pain Skin: Denies: Rash Neurological: Denies: Headache Allergy: Denies: Uticaria Physical Exam Vital Signs/Narrative: Vital Signs Temp Pulse Resp BP Pulse Ox 09/18/19 09:45 97.2 F L 94 16 126/77 H 100 Inital Vital Signs reviewed: Yes General: Well nourished, Well developed Head: Normocephalic ENT: Moist mucous membranes Neck: Supple Cardiovascular: Regular rate, Regular rhythm Respiratory: No distress, CTA bilaterally Abdomen: Soft, Tender, Hypoactive bowel sounds. Negative for: Guarding, Rebound tenderness Extremities: Nontender Skin: Normal color Neurological: Alert, Oriented x3 Psychological: - - Anxious Diagnostic/Tx/Re-eval Impressions Obstetrics Ultrasound 09/18/19 10:51 IMPRESSION: 1. Polycystic features of the ovaries. 2. Single live intrauterine gestation, AUA 6 week 6 day, CESAR (AUA) 05/07/2020. Appropriate cardiac activity. No acute abnormality is evident. Electronically Signed: Leonides Holley MD at 12:19 EST Tel , Service support , 09/18/19 10:16 Abdomen/Pelvis WITH Contrast [CT] Stat 09/18/19 10:51 Transvaginal w/Preg US [US] Stat Laboratory Results 09/18/19 09/18/19 09/18/19 09:57 09:57 09:57 WBC 9.7 RBC 4.63 Hgb 13.9 Hct 41.0 MCV 88.6 MCH 30.0 MCHC 33.9 RDW Std Deviation 38.0 RDW Coeff of Mia 11.9 Plt Count 314 MPV 9.7 Immature Gran % (Auto) 0.400 Neut % (Auto) 67.0 Lymph % (Auto) 23.1 [place] % (Auto) 6.7 Eos % (Auto) 2.1 Baso % (Auto) 0.7 Absolute Neuts (auto) 6.5 Absolute Lymphs (auto) 2.24 Nucleated RBC % 0 Sodium 140 Potassium 3.7 Chloride 109 H Carbon Dioxide 27.0 Anion Gap 4 L BUN 5 L Creatinine 0.72 Estim Creat Clear Calc 115.14 Est GFR (MDRD) Af Amer 126 Est GFR (MDRD) Non-Af 104 BUN/Creatinine Ratio 7.0 L Glucose 71 L Calcium 8.9 Total Bilirubin 0.10 L Direct Bilirubin 0.08 AST 19 ALT 31 Alkaline Phosphatase 85 Total Protein 6.9 Albumin 3.5 Globulin 3.4 Lipase 127 HCG, Quant Serum , Qual POSITIVE Urine Color Urine Clarity Urine pH Ur Specific [place] Urine Protein Urine Glucose (UA) Urine Ketones Urine Occult Blood Urine Nitrite Urine Bilirubin Urine Urobilinogen Ur Leukocyte Esterase Urine RBC Urine WBC Ur Squamous Epith Cells Urine Bacteria Urine Mucus 09/18/19 09/18/19 09:57 10:34 WBC RBC Hgb Hct MCV MCH MCHC RDW Std Deviation RDW Coeff of Mia Plt Count MPV Immature Gran % (Auto) Neut % (Auto) Lymph % (Auto) [place] % (Auto) Eos % (Auto) Baso % (Auto) Absolute Neuts (auto) Absolute Lymphs (auto) Nucleated RBC % Sodium Potassium Chloride Carbon Dioxide Anion Gap BUN Creatinine Estim Creat Clear Calc Est GFR (MDRD) Af Amer Est GFR (MDRD) Non-Af BUN/Creatinine Ratio Glucose Calcium Total Bilirubin Direct Bilirubin AST ALT Alkaline Phosphatase Total Protein Albumin Globulin Lipase HCG, Quant 33973 H Serum , Qual Urine Color Yellow Urine Clarity Sl. Cloudy Urine pH 7.0 Ur Specific [place] 1.010 Urine Protein Negative Urine Glucose (UA) Normal Urine Ketones Negative Urine Occult Blood 10 H Urine Nitrite Negative Urine Bilirubin Negative Urine Urobilinogen 1 H Ur Leukocyte Esterase 25 H Urine RBC 0 SEEN Urine WBC 0-5 SEEN Ur Squamous Epith Cells 0-5 SEEN Urine Bacteria 0 SEEN Urine Mucus 0 SEEN - Medical Decision Making Patient was given morphine and Zofran on arrival. I initially plan to get a CT scan, however serum test returned positive. Quant is just over 22,000. Pelvic ultrasound does reveal single live intrauterine gestation at approximately 6 weeks and 6 days. No obvious abnormalities are noted. There are polycystic features noted to the ovaries. Test results discussed with the patient. She does not have an established MASTER BLACK BELT. I will speak with Dr. Crystal Sandy, on-call for no doc to help arrange close follow-up. ED Disposition - Plan for ED Patient: Disposition: Home or Assisted Living Diagnosis: First trimester Instructions: , New Dx Referrals: Valarie Cagle MD [STAFF PHYSICIAN] - 1-2 Weeks
[2019-09-18 10:28] LABS: Absolute Lymphocyte Count 2.24 X10^3/uL (0.83-4.51); Absolute Neutrophil Count 6.5 X10^3/uL (2.0-7.7); Basophil# 0.07 X10^3/uL; Basophil% 0.7 % (0-1); Eosinophils% 2.1 % (0-5); Hemoglobin 13.9 g/dL (12.0-15.0); Lymphocyte # 2.24 X10^3/ul (4.0); Lymphocyte % 23.1 % (19-41); Mean Corp Hgb Conc 33.9 g/dL (32-36); Mean Corpuscular Volume 88.6 fL (81-99); Mean Platelet Vol. 9.7 fl (6.2-12.0); Monocyte# 0.65 X10^3/uL; Monocyte% 6.7 % (0-10); NRBC Flagged by Analyzer 0 % (0-5); Neutrophil # 6.51 X10^3/uL (2.7-7.7); Platelet Count 314 K/mm3 (150-450); RBC Distribution Width CV 11.9 % (11.6-14.6); Red Blood Count 4.63 M/mm3 (4.2-5.4); White Blood Count 9.7 K/mm3 (4.4-11.0)
[2019-09-18] MEDS: Ondansetron 4 MG/2 ML Vial IV (10:30)
[2019-09-18] MEDS: Morphine 4 MG/ML Syringe IV (10:31)
[2019-09-18] MEDS: 0.9% Normal Saline 1,000 ML 150 ML IV (10:33)
[2019-09-18 10:39] LABS: Bacteria 0 SEEN /hpf (None Seen); Mucous, Urine 0 SEEN /hpf (<or=2+); Red Blood Cells-Urine 0 SEEN /hpf (0-5)
[2019-09-18 10:43] LABS: Internal QC Validated? YES +Cl - CLEAR BKGD
[2019-09-18 10:44] LABS: Pregnancy, Serum, hCG Quali. POSITIVE Negative
[2019-09-18 10:48] LABS: Color, Urine Yellow (Yellow); Glucose, Dipstick Normal (Normal); Ketone-Dipstick Negative (Negative); Leukocyte Esterase-Dipstick 25 /ul (Negative); Nitrite-Dipstick Negative (Negative); Occult Blood-Urine 10 /ul (Negative); Protein-Dipstick Negative (Negative); Urine Bilirubin Dipstick Negative (Negative); Urine Clarity Sl. Cloudy (Clear); Urine Urobilinogen 1 mg/dl (Normal)
[2019-09-18 10:49] LABS: AST(SGOT) 19 U/L (15-37); Alanine Aminotransfer ALT/SGPT 31 U/L (13-56); Albumin, Serum 3.5 g/dL (3.2-5.0); Alkaline Phosphatase 85 U/L (45-117); Anion Gap 4 (5-15); BUN 5 mg/dL (7-18); Bilirubin, Direct 0.08 mg/dL (0.00-0.30); Calcium,Total 8.9 mg/dL (8.5-10.1); Chloride 109 mmol/L (98-107); Creatinine, Serum 0.72 mg/dL (0.55-1.02); EST Glomerular Filtration Rate 104 mL/min (>60); Est Glom Filt Rate - Afr Amer 126 mL/min (>60); Estimated Creatinine Clearance 115.14 ml/min; Globulin 3.4 g/dL (2.2-4.2); Glucose 71 mg/dL (74-106); Lipase 127 U/L (73-393); Potassium 3.7 mmol/L (3.5-5.1); Protein, Total 6.9 g/dL (6.4-8.2); Sodium Level 140 mmol/L (136-145)
--- NOTE | 2019-09-18 10:51 | US_ITS ---
STUDY: FIRST TRIMESTER OBSTETRICAL ULTRASOUND REASON FOR EXAM: Female, 24 years old. Right lower quadrant pain, beta hCG pending, last menses unknown. LMP: Unknown TECHNIQUE: Transvaginal pelvic ultrasound PRIOR ULTRASOUND: None. FINDINGS: Single live intrauterine gestation, cardiac rate 124 bpm. Adjacent to the gestational sac, slender hypoechoic focus is consistent with subchorionic hemorrhage, measuring approximately 2.0 x 0.4 cm. Mean gestational sac diameter 2 cm correlating with 7 week 0 day gestation. No sac present, 2 mm. [place]-rump length 0.7 cm correlating with 6 week 5 day gestation. It is too early for assessment of amniotic fluid index or placental development. Uterus 8.8 x 7.1 x 4.7 cm, normal myometrial echotexture. Right ovary 32 x 31 x 20 mm, normal echotexture, small physiologic follicles several of which are arranged in a string of pearls pattern along the peripheral margin of the ovary. Normal ovarian vascular flow. No adnexal mass or suspicious cyst or free fluid. Left ovary 7.3 x 4.5 x 3.4 cm. Several abnormally enlarged follicles oriented along the periphery of the ovary, the largest measuring 3.6 x 3.5 x 3.2 cm, each simple cystic in appearance, the smallest measuring approximately 2.1 cm. There is no left adnexal mass, or free fluid. There is no cul-de-sac free fluid. US/Transvaginal w/Preg US IMPRESSION: 1. Polycystic features of the ovaries. 2. Single live intrauterine gestation, AUA 6 week 6 day, CESAR (AUA) 05/07/2020. Appropriate cardiac activity. No acute abnormality is evident. Electronically Signed: Leonides Holley MD at 12:19 EST Tel , Service support ,
[2019-09-18 10:57] LABS: Squamous Epithelial Cells - UA 0-5 SEEN /hpf (5-10); White Blood Cells 0-5 SEEN /hpf (0-5)
[2019-09-18 11:38] LABS: hCG Titer Quant., Serum 22608 mIU/mL (1-3)
--- NOTE | 2019-09-18 13:03 | ED.RN ---
IV DC'ED, CATHETER INTACT, SMALL GAUZE DRESSING PLACED. DISCHARGE INSTRUCTIONS GIVEN TO AND REVIEWED WITH PATIENT, PATIENT DENIES QUESTIONS OR CONCERNS AND VOICES UNDERSTANDING OF DISCHARGE INSTRUCTIONS. PT AMBULATES OUT OF ROOM WITHOUT DIFFICULTY.
== END 2019-09-18 13:04 | disposition home or self-care (01) ==
PROVIDERS: Emergency Provider Emergency Medicine; PCP Family Medicine
DX: O26.891 Other specified pregnancy related conditions, first trimester (principal); R10.31 Right lower quadrant pain; R19.7 Diarrhea, unspecified; R11.0 Nausea; M79.7 Fibromyalgia; O99.341 Other mental disorders complicating pregnancy, first trimester; F32.9 Major depressive disorder, single episode, unspecified; F41.9 Anxiety disorder, unspecified; O99.331 Smoking (tobacco) complicating pregnancy, first trimester; F17.200 Nicotine dependence, unspecified, uncomplicated; Z88.1 Allergy status to other antibiotic agents; Z88.2 Allergy status to sulfonamides; Z88.5 Allergy status to narcotic agent; Z79.899 Other long term (current) drug therapy; Z90.49 Acquired absence of other specified parts of digestive tract; Z3A.01 Less than 8 weeks gestation of pregnancy
CPT/HCPCS: 74177; 76817; 80048; 80076; 81001; 83690; 84702; 84703; 85025; 96361; 96374; 96375; 99283; J7030; A4216; J2405

== ENCOUNTER → 2019-09-22 14:29 | Outpatient (CLI) | payer MEDICAID, SELFPAY ==
[2019-09-18 09:45] VITALS: BMI 24.3
== END ==
PROVIDERS: Visit Provider Advanced Practice Midwife
DX: Z12.4 Encounter for screening for malignant neoplasm of cervix (principal); Z11.3 Encounter for screening for infections with a predominantly sexual mode of transmission; Z32.01 Encounter for pregnancy test, result positive

== ENCOUNTER → 2019-09-27 15:30 | Outpatient (CLI) | payer MEDICAID, SELFPAY ==
[2019-09-18 09:45] VITALS: BMI 24.3
[2019-09-27 17:17] LABS: Absolute Lymphocyte Count 2.94 X10^3/uL (0.83-4.51); Absolute Neutrophil Count 10.1 X10^3/uL (2.0-7.7); Basophil# 0.06 X10^3/uL; Basophil% 0.4 % (0-1); Eosinophil# 0.19 X10^3/uL; Eosinophils% 1.4 % (0-5); Hematocrit 40.7 % (37-47); Hemoglobin 13.3 g/dL (12.0-15.0); Lymphocyte # 2.94 X10^3/ul (4.0); Lymphocyte % 20.9 % (19-41); Mean Corp Hgb Conc 32.7 g/dL (32-36); Mean Corpuscular Hgb 29.4 pg (27.0-32.0); Mean Corpuscular Volume 89.8 fL (81-99); Mean Platelet Vol. 9.5 fl (6.2-12.0); Monocyte# 0.72 X10^3/uL; Monocyte% 5.1 % (0-10); NRBC Flagged by Analyzer 0 % (0-5); Neutrophil # 10.11 X10^3/uL (2.7-7.7); Neutrophil % 71.8 % (47-70); Platelet Count 374 K/mm3 (150-450); RBC Distribution Width CV 12.6 % (11.6-14.6); Red Blood Count 4.53 M/mm3 (4.2-5.4); White Blood Count 14.1 K/mm3 (4.4-11.0)
[2019-09-27 17:36] LABS: Color, Urine Yellow (Yellow); Glucose, Dipstick Normal (Normal); Ketone-Dipstick Negative (Negative); Leukocyte Esterase-Dipstick 100 /ul (Negative); Nitrite-Dipstick Negative (Negative); Occult Blood-Urine 25 /ul (Negative); Protein-Dipstick Negative (Negative); Specific Gravity, Urine 1.025 (1.002-1.030); Urine Bilirubin Dipstick Negative (Negative); Urine Clarity Sl. Cloudy (Clear); Urine Urobilinogen Normal (Normal)
[2019-09-27 17:37] LABS: Thyroid Stim Hormone (TSH) 0.58 uIU/mL (0.358-3.74)
[2019-09-27 17:52] LABS: COTININE Drug Screen Positive (<200 ng/mL)
[2019-09-27 17:54] LABS: Amphetamine Urine VISTA NEGATIVE (<1000 ng/mL); Barbiturate Urine VISTA NEGATIVE (< 200 ng/mL); Benzodiazepine Urine VISTA POSITIVE (< 200 ng/mL); Cocaine Urine VISTA NEGATIVE (< 300 ng/mL); Ecstacy Urine VISTA NEGATIVE (< 500 ng/mL); Methadone Urine VISTA NEGATIVE (< 300 ng/mL); PCP Urine VISTA NEGATIVE (< 25 ng/mL); THC Urine VISTA NEGATIVE (< 50 ng/mL); Vista UDS pH Range 6
[2019-09-28 10:56] LABS: HIV - WCH Non-Reactive (Nonreactive); Hepatitis B Surface Antigen Non-Reactive (Nonreactive); Hepatitis C Antibody Non-Reactive (Nonreactive); Rubella IgG 73.3 IU/mL; Vitamin D,25 Hydroxy 13.5 ng/mL (29.95-100.01)
[2019-09-30 03:50] LABS: Prenatal RPR NONREACTIVE (NONREACTIVE)
== END ==
PROVIDERS: Visit Provider Obstetrics & Gynecology
DX: Z34.81 Encounter for supervision of other normal pregnancy, first trimester (principal)
CPT/HCPCS: 36415; 80307; 81002; 82306; 84443; 85025; 86703; 86762; 86803; 87086; 87340

== ENCOUNTER 2021-12-02 15:09 | Emergency (ER) | payer MEDICAID, SELFPAY ==
[2021-12-02 15:09] VITALS: BP 118/86; PULSE 65; RESP 16; TEMP 36.7; O2SAT 100; BMI 27.8
--- NOTE | 2021-12-02 15:29 | ED.VIS.GI ---
HPI HPI - GI History of Present Illness Chief Complaint: Abd Pain Detail of Chief Complaint: Abdominal pain that started yesterday. Informant: patient Narrative Narrative: Patient presents to the emergency department with complaint of abdominal pain that started yesterday. Patient states that she was seen at [facility] this morning around 9 AM and had lab work-up as well as CT scan of the abdomen pelvis and she was told she had an ovarian cyst. Patient does not know what side. She complains of pain mostly to her right side that is worse with walking. Patient also is had vomiting and diarrhea. Denies any sick contacts. Currently states the pain severe. She took ibuprofen without any relief. She denies urinary symptoms. Patient states her last menstrual period was about a month ago but she had her fallopian tubes removed after her last . PFSH PFSH Home Medications diazepam 5 mg PO TID 08/22/19 [History Last Taken 08/21/19] ibuprofen 200 mg PO Q6H PRN PRN tab 08/25/19 [Rx Last Taken Unknown] dicyclomine 20 mg PO TIDAC #20 capsule 12/02/21 [Rx Last Taken Unknown] hydrocodone-acetaminophen 1 tab PO Q4H PRN PRN 2 Days #10 tablet 12/02/21 [Rx Last Taken Unknown] ondansetron 4 mg PO Q8H PRN PRN #10 tab 12/02/21 [Rx Last Taken Unknown] tizanidine mg 12/02/21 [History Last Taken Unknown] Allergy/AdvReac Type Severity Reaction Status Date / Time acetaminophen [From Andrew] Allergy Rash Verified 12/02/21 15:13 gabapentin Allergy Nausea Verified 12/02/21 15:13 naproxen Allergy Nausea Verified 12/02/21 15:13 sulfamethoxazole Allergy Unknown Verified 12/02/21 15:13 [From ] trimethoprim [From ] Allergy Unknown Verified 12/02/21 15:13 Social History Smoking Status: Current every day smoker tobacco type: cigarettes ROS ROS ED Constitutional Constitutional ED: Reports systems reviewed and no addt'l complaints, except as documented; Denies body ache(s), change in weight or chills Eyes Eyes: Denies acute decrease in peripheral vision, change in vision, double vision or loss of vision ENT ENT ED: Reports none; Denies ear pain, lip swelling, loss taste/smell, neck pain, otalgia or sore throat Cardiovascular Cardiovascular: Reports none; Denies abdominal pain, chest pain with activity, leg edema, lightheadedness, palpitations, rapid heart rate or syncope Respiratory/Chest Respiratory/Chest: Reports none; Denies change in mental status, dry cough, dyspnea, hemoptysis, shortness of breath at rest or shortness of breath with exertion Gastrointestinal Gastrointestinal: Reports none, abdominal pain, diarrhea, nausea and vomiting; Denies change in stool character, hematemesis, hematochezia, melena or rectal bleeding Genitourinary Genitourinary ED: Reports none; Denies abdominal discomfort, anuria, dysuria, genital pain or polyuria Musculoskeletal Musculoskeletal: Reports none; Denies arthralgias, back pain, difficulty walking, extremity pain, muscle weakness or myalgias Integumentary Reports none; Denies abscess or rash Neurologic Neurologic: Reports none; Denies abnormal gait, confusion, focal weakness, frequent falls, headache(s), loss of vision, numbness, paresthesias, radicular pain, vertigo or weakness Psychiatric Psychiatric: Reports systems reviewed and no addt'l complaints, except as documented and none; Denies behavioral changes, confusion, difficulty concentrating, hallucinations, suicidal ideation, tactile hallucinations or visual hallucinations Endocrine Endocrinology: Denies none, cold intolerance, excessive sweating, fatigue or heat intolerance Hematologic/Lymphatic Hematologic/Lymphatic: Reports none; Denies anemia, easy bleeding or easy bruising Allergic/Immunologic Allergic/Immunologic ED: Denies as per HPI, none, lip swelling, mouth swelling, throat swelling, tongue swelling or hives EXAM Physical Exam Const Vital Signs: 12/02/21 15:09 12/02/21 17:06 Temperature 98.1 F Temperature Source Temporal Pulse Rate 65 Respiratory Rate 16 14 Blood Pressure 118/86 H 115/82 H Blood Pressure Mean 96 93 Pulse Ox 100 98 Oxygen Delivery Method Room Air Room Air Positive well nourished and well developed General Appearance ED: well developed and NAD HEENT Reports TM's clear and moist mucous membranes normocephalic and atraumatic; Negative for trauma or tenderness Tympanic Membrane ED: Yes TM's clear Eyes PERRL and EOMs intact bilaterally General Eye ED: Negative for pale conjunctiva or scleral icterus Neck no lymphadenopathy, supple and no JVD General: Negative for tenderness Chest Wall inspection of chest normal and palpation of chest normal Chest: Negative for tenderness Resp normal respiratory effort and clear to auscultation bilaterally Effort and Inspection: Negative for respiratory distress or pain with movement Auscultation: Negative for rhonchi, wheezes or diminished lung sounds Cardio regular rate, regular rhythm, S1 normal heart sound, S2 normal heart sound and no murmurs Peripheral Pulses: pulses 2+ throughout GI normal to inspection, nondistended, normoactive bowel sounds, soft to palpation, non-distended and no masses GI Narrative: Patient with diffuse tenderness over the right lower quadrant, suprapubic, and left lower quadrant. There is no rebound, rigidity, or peritoneal signs. No masses palpated. Back/Spine no CVA tenderness and no thoracic nor lumbar tenderness Extremity normal to inspection General Extremety ED: Negative for edema General Extremity: Negative for edema Neuro oriented x3, CN's II-XII intact bilaterally, no sensory deficits noted and gait normal Sensorium / Orientation: awake, alert, oriented to person, oriented to place and oriented to time Motor Exam: strength 5/5 throughout and strength abnormal Psych mental status grossly normal Skin no rashes or lesions noted and no wounds MDM MDM MDM Narrative Medical decision making narrative: IV line established on arrival. Patient was medicated with Bentyl and 1 mg of Dilaudid and Zofran. She had good pain relief with that. CBC with differential is normal. Chemistries normal. Lactate normal. I did do a pelvic ultrasound and there was no evidence of torsion however she did have bilateral ovarian cyst measuring up to 3.4 cm on the left. Patient labs and CT scan from this morning were reviewed and the appendix was visualized and was normal. Given that she has diarrhea and vomiting I suspect likely she has a viral gastroenteritis. I do not feel any further imaging is indicated at this time. Patient will be discharged home with a prescription for Bentyl as well as Zofran and Andrew for a couple of days. Patient advised to return if worsening pain, dehydration, or condition worsen anyway. Lab Data Attestation: I reviewed the patient's lab results. Labs: Laboratory Results - last 24 hr 12/02/21 12/02/21 12/02/21 15:40 15:40 15:40 WBC 9.3 RBC 4.61 Hgb 13.9 Hct 40.5 MCV 87.9 MCH 30.2 MCHC 34.3 RDW Std Deviation 39.1 RDW Coeff of Mia 12.1 Plt Count 325 MPV 9.6 Immature Gran % (Auto) 0.200 Neut % (Auto) 66.9 Lymph % (Auto) 25.3 [place] % (Auto) 5.7 Eos % (Auto) 1.4 Baso % (Auto) 0.5 Absolute Neuts (auto) 6.2 Absolute Lymphs (auto) 2.35 Nucleated RBC % 0 Sodium 141 Potassium 3.6 Chloride 113 H Carbon Dioxide 24.0 Anion Gap 4 L BUN 7 Creatinine 0.76 Estim Creat Clear Calc 107.17 Est GFR (MDRD) Af Amer 116 Est GFR (MDRD) Non-Af 96 BUN/Creatinine Ratio 9.2 L Glucose 89 Lactic Acid 0.7 Calcium 8.6 Radiography Diagnostic Testing: Clinical Impression(s) from Imaging Studies Transvaginal US 12/02/21 15:35 IMPRESSION: Bilateral ovarian cysts measuring up to 3.4 cm on the left. Electronically Signed: Laura Joshi MD at 17:00 EDT , Discharge Plan Triage Chief Complaint: Abd Pain ED Provider: Cherise Kelly Dx/Rx/DC Orders Clinical Impression: Abdominal pain, Viral gastroenteritis Instructions: Abdominal Pain, ED Gastroenteritis, Viral (Adult) Prescriptions: New hydrocodone-acetaminophen [hydrocodone-acetaminophen] 1 TABLET tablet 1 tab PO Q4H PRN PRN (Reason: Pain) 2 Days Qty: 10 RF: 0 ondansetron [ondansetron] 4 MG tablet 4 mg PO Q8H PRN PRN (Reason: Nausea) Qty: 10 RF: 0 dicyclomine 10 MG capsule 20 mg PO TIDAC Qty: 20 RF: 0 No Action diazepam 5 MG tablet 5 mg PO TID RF: 0 ibuprofen 200 MG tablet 200 mg PO Q6H PRN PRN (Reason: Pain Score 1-3/10 or T>100.4 F) RF: 0 tizanidine 4 mg tablet RF: 0 Primary Care Provider: Tenzin Espinoza Referrals: Tenzin Espinoza, [Primary Care Provider] - 3-5 Days Disposition Disposition: Home, Self Care
--- NOTE | 2021-12-02 15:35 | US_ITS ---
STUDY: ULTRASOUND TRANSVAGINAL CLINICAL: Female, 26 years old. Pelvic pain TECHNIQUE: Transvaginal COMPARISON: None. FINDINGS: Normal uterine size measuring 8.8 cm in maximal craniocaudal dimension. There are no myometrial masses. Normal endometrial thickness measuring 11.3 mm. There are no endometrial masses. There is trace fluid in the endometrial cavity. Normal uterine cervix. Normal right ovary, measuring 3.0 x 3.7 x 3.8 cm. There is a grossly simple appearing 2.2 x 2.2 x 2.0 cm right ovarian cyst. Normal left ovary, measuring 3.7 x 3.2 x 3.7 cm. There is a 2.4 x 2.8 x 3.4 cm grossly simple appearing left ovarian cyst. There is minimal free fluid in the pelvis. Spectral analysis and Doppler flow of the ovaries is within normal limits. Polycystic ovary disease: No. US/Transvaginal Non- IMPRESSION: Bilateral ovarian cysts measuring up to 3.4 cm on the left. Electronically Signed: Laura Joshi MD at 17:00 EDT ,
[2021-12-02] MEDS: Ondansetron 4 MG/2 ML Vial IV (15:45)
[2021-12-02] MEDS: Dicyclomine 20 MG/2 ML Vial IM (15:46)
[2021-12-02] MEDS: HYDROmorphone 1 MG/ML Syringe IV (15:46)
[2021-12-02] MEDS: 0.9% Normal Saline 1,000 ML 125 ML IV (15:46)
[2021-12-02 16:00] LABS: Absolute Lymphocyte Count 2.35 X10^3/uL (0.83-4.51); Absolute Neutrophil Count 6.2 X10^3/uL (2.0-7.7); Basophil# 0.05 X10^3/uL; Basophil% 0.5 % (0-1); Eosinophil# 0.13 X10^3/uL; Eosinophils% 1.4 % (0-5); Hematocrit 40.5 % (37-47); Hemoglobin 13.9 g/dL (12.0-15.0); Lymphocyte # 2.35 X10^3/ul (0.83-4.51); Lymphocyte % 25.3 % (19-41); Mean Corp Hgb Conc 34.3 g/dL (32-36); Mean Corpuscular Hgb 30.2 pg (27.0-32.0); Mean Corpuscular Volume 87.9 fL (81-99); Mean Platelet Vol. 9.6 fl (6.2-12.0); Monocyte# 0.53 X10^3/uL; Monocyte% 5.7 % (0-10); NRBC Flagged by Analyzer 0 % (0-5); Neutrophil # 6.21 X10^3/uL (2.7-7.7); Neutrophil % 66.9 % (47-70); Platelet Count 325 K/mm3 (150-450); RBC Distribution Width CV 12.1 % (11.6-14.6); RBC Distribution Width SD 39.1 fl (35.1-43.9); Red Blood Count 4.61 M/mm3 (4.2-5.4); White Blood Count 9.3 K/mm3 (4.4-11.0)
[2021-12-02 16:12] LABS: Anion Gap 4 (5-15); BUN 7 mg/dL (7-18); BUN/Creat Ratio 9.2 RATIO (10-20); Calcium,Total 8.6 mg/dL (8.5-10.1); Chloride 113 mmol/L (98-107); Creatinine, Serum 0.76 mg/dL (0.55-1.02); EST Glomerular Filtration Rate 96 mL/min (>60); Est Glom Filt Rate - Afr Amer 116 mL/min (>60); Estimated Creatinine Clearance 107.17 ml/min; Glucose 89 mg/dL (74-106); Potassium 3.6 mmol/L (3.5-5.1); Sodium Level 141 mmol/L (136-145)
[2021-12-02 16:22] LABS: Lactic Acid 0.7 mmol/L (0.4-1.9)
[2021-12-02 17:06] VITALS: BP 115/82; RESP 14; O2SAT 98
== END 2021-12-02 17:20 | disposition home or self-care (01) ==
PROVIDERS: Emergency Provider Emergency Medicine; PCP Family Medicine; Visit Provider Emergency Medicine
DX: A08.4 Viral intestinal infection, unspecified (principal); N83.202 Unspecified ovarian cyst, left side; N83.201 Unspecified ovarian cyst, right side; F17.210 Nicotine dependence, cigarettes, uncomplicated; Z79.899 Other long term (current) drug therapy
CPT/HCPCS: 76830; 80048; 83605; 85025; 96361; 96372; 96374; 96375; 99285; J7030; A4216; J2405

== ENCOUNTER 2021-12-16 08:40 | Emergency (ER) | payer MEDICAID, SELFPAY ==
[2021-12-16 08:44] VITALS: BP 139/94; PULSE 99; RESP 16; TEMP 36.3; O2SAT 97; BMI 25.0
--- NOTE | 2021-12-16 09:28 | ED.VIS.GI ---
HPI HPI - GI History of Present Illness Chief Complaint: Abd Pain Informant: patient Abdominal Pain/Flank Pain Onset: Weeks (2) Context: Sudden Onset Timing: Continuous Quality: Cramping and Sharp Location: Diffuse Worsened by: - (Coughing) Relieved by: Nothing Nausea/Vomiting/Emesis GI Symptom: Positive for Nausea; Negative for Vomiting Diarrhea/Melena/Hematochezia GI Symptom: Positive for Diarrhea; Negative for Melena and Hematochezia Associated Symptoms Associated Symptoms: Negative for Dysuria, Frequency and Hematuria Narrative Narrative: Patient presents with lower abdominal pain that has been constant for the past 2 weeks. Patient was seen here at that time and was diagnosed with an ovarian cyst. Patient states her pain began rather suddenly. Patient states it has been constant. Patient states the pain is worse over the right lower abdomen but is diffuse across the abdomen. Patient states her pain is worse with coughing. Patient denies any fevers or chills. Patient admits to nausea but denies any vomiting. Patient admits to diarrhea but denies any melena or hematochezia. Patient denies any urinary complaints. PFSH PFSH Medical History History of kidney stones Hx of migraines Hx of ovarian cyst Home Medications diazepam 5 mg PO BID 08/22/19 [History Last Taken 08/21/19] duloxetine 60 mg PO DAILY 12/16/21 [History Last Taken Unknown] ondansetron 4 mg PO Q8H PRN PRN #10 tab 12/16/21 [Rx Last Taken Unknown] oxycodone-acetaminophen 1 tab PO Q6H PRN PRN 3 Days #12 tablet 12/16/21 [Rx Last Taken Unknown] Allergy/AdvReac Type Severity Reaction Status Date / Time acetaminophen [From [place]] Allergy Rash Verified 12/02/21 15:13 gabapentin Allergy Nausea Verified 12/02/21 15:13 naproxen Allergy Nausea Verified 12/02/21 15:13 sulfamethoxazole Allergy Unknown Verified 12/02/21 15:13 [From [facility]] trimethoprim [From ] Allergy Unknown Verified 12/02/21 15:13 Surgical History Hx of cholecystectomy Social History Smoking Status: Current every day smoker tobacco type: cigarettes ROS ROS ED Constitutional Constitutional ED: Denies chills or fever(s) Eyes Eyes: Denies blurry vision or change in vision ENT ENT ED: Denies rhinorrhea or sore throat Cardiovascular Cardiovascular: Denies chest pain or palpitations Respiratory/Chest Respiratory/Chest: Denies cough or dyspnea Gastrointestinal Gastrointestinal: Reports abdominal pain and diarrhea; Denies melena, nausea or vomiting Genitourinary Genitourinary ED: Denies dysuria or hematuria Musculoskeletal Musculoskeletal: Reports back pain; Denies neck pain Integumentary Denies abscess or rash Neurologic Neurologic: Reports headache(s); Denies weakness Allergic/Immunologic Allergic/Immunologic ED: Denies mouth swelling or urticaria EXAM Physical Exam Const Vital Signs: 12/16/21 08:44 12/16/21 11:04 Temperature 97.4 F L Temperature Source Temporal Pulse Rate 99 46 L Respiratory Rate 16 16 Blood Pressure 139/94 H 124/90 H Blood Pressure Mean 109 101 Pulse Ox 97 99 Oxygen Delivery Method Room Air Room Air Positive well nourished and well developed General Appearance ED: well developed HEENT Reports moist mucous membranes Neck supple and no JVD Resp normal respiratory effort and clear to auscultation bilaterally Cardio regular rate, regular rhythm and no murmurs GI normal to inspection, nondistended, normoactive bowel sounds and non-distended Auscultation: normoactive bowel sounds Palpation: soft and tender epigastric, LLQ, RLQ, LUQ, RUQ, periumbilical and suprapubic; Negative for guarding or rebound tenderness present Extremity normal to inspection General Extremety ED: Negative for edema or tenderness General Extremity: Negative for edema Neuro oriented x3, CN's II-XII intact bilaterally and no sensory deficits noted Sensorium / Orientation: alert Motor Exam: strength 5/5 throughout Psych mental status grossly normal Skin no rashes or lesions noted MDM MDM MDM Narrative Medical decision making narrative: Patient was given IV fluids, Reglan, Benadryl, and morphine. CBC was within normal limits. Comprehensive metabolic profile was essentially within normal limits. Urinalysis does not show any evidence of urinary tract infection. Serum hCG was negative. Lipase was normal. CT scan of the abdomen pelvis was obtained. There is no acute abnormality noted. There are bilateral ovarian cyst noted. This was interpreted by the radiologist and reviewed by myself. Patient states her pain was improving but is starting to come back. Patient was given a repeat dose of morphine and a dose of Zofran. Patient was given a prescription for a short course of Percocet and Zofran. Patient was advised that any further narcotic prescriptions would have to come from her primary care physician or ACCOUNTS RECEIVABLE ASSISTANT. Patient was instructed to start with a liquid diet and advance as tolerated. Patient was instructed to rest in a dark quiet room. Patient was instructed to follow-up with her ACCOUNTS RECEIVABLE ASSISTANT in 3 to 5 days. Patient understood and was agreeable with the plan. All questions were answered. Lab Data Attestation: I reviewed the patient's lab results. Labs: Laboratory Results - last 24 hr 12/16/21 12/16/21 12/16/21 09:40 09:50 09:50 WBC 8.2 RBC 5.69 H Hgb 17.5 H Hct 50.8 H MCV 89.3 MCH 30.8 MCHC 34.4 RDW Std Deviation 40.3 RDW Coeff of Mia 12.3 Plt Count 357 MPV 9.3 Immature Gran % (Auto) 0.400 Neut % (Auto) 73.7 H Lymph % (Auto) 19.3 [place] % (Auto) 4.6 Eos % (Auto) 1.5 Baso % (Auto) 0.5 Absolute Neuts (auto) 6.1 Absolute Lymphs (auto) 1.59 Nucleated RBC % 0 Sodium 140 Potassium 3.5 Chloride 109 H Carbon Dioxide 25.0 Anion Gap 6 BUN 7 Creatinine 0.93 Estim Creat Clear Calc 87.58 Est GFR (MDRD) Af Amer 92 Est GFR (MDRD) Non-Af 76 BUN/Creatinine Ratio 7.6 L Glucose 94 Calcium 10.0 Total Bilirubin 0.30 AST 12 L ALT 24 Alkaline Phosphatase 111 Total Protein 8.7 H Albumin 4.4 Globulin 4.3 H Albumin/Globulin Ratio 1.0 Lipase 157 Serum , Qual Urine Color Yellow Urine Clarity Clear Urine pH 7.0 Ur Specific [place] 1.005 Urine Protein Negative Urine Glucose (UA) Normal Urine Ketones Negative Urine Occult Blood Negative Urine Nitrite Negative Urine Bilirubin Negative Urine Urobilinogen Normal Ur Leukocyte Esterase Negative Urine RBC 0 SEEN Urine WBC 0-5 SEEN Ur Squamous Epith Cells 0-5 SEEN Urine Bacteria 1+ Urine Mucus 0 SEEN 12/16/21 09:50 WBC RBC Hgb Hct MCV MCH MCHC RDW Std Deviation RDW Coeff of Mia Plt Count MPV Immature Gran % (Auto) Neut % (Auto) Lymph % (Auto) [place] % (Auto) Eos % (Auto) Baso % (Auto) Absolute Neuts (auto) Absolute Lymphs (auto) Nucleated RBC % Sodium Potassium Chloride Carbon Dioxide Anion Gap BUN Creatinine Estim Creat Clear Calc Est GFR (MDRD) Af Amer Est GFR (MDRD) Non-Af BUN/Creatinine Ratio Glucose Calcium Total Bilirubin AST ALT Alkaline Phosphatase Total Protein Albumin Globulin Albumin/Globulin Ratio Lipase Serum , Qual NEGATIVE Urine Color Urine Clarity Urine pH Ur Specific [place] Urine Protein Urine Glucose (UA) Urine Ketones Urine Occult Blood Urine Nitrite Urine Bilirubin Urine Urobilinogen Ur Leukocyte Esterase Urine RBC Urine WBC Ur Squamous Epith Cells Urine Bacteria Urine Mucus Radiography Diagnostic Testing: Clinical Impression(s) from Imaging Studies Abdomen/Pelvis CT 12/16/21 09:31 IMPRESSION: 1. Bilateral nonobstructing renal stones without evidence of hydronephrosis. 2. Left renal lesion probably representing cysts. Correlation with nonemergent renal ultrasound or MRI is recommended. 3. Borderline hepatosplenomegaly. 4. No focal acute inflammatory process.. Electronically Signed: Jeremias Sykes MD at 11:51 EDT , Discharge Plan Triage Chief Complaint: Abd Pain ED Provider: Quirino Vera Dx/Rx/DC Orders Clinical Impression: Abdominal pain, Ovarian cyst Instructions: ED Abdominal Pain Unkn Cause Fem, ED Ovarian Cyst Prescriptions: New oxycodone-acetaminophen [oxycodone-acetaminophen] 1 TABLET tablet 1 tab PO Q6H PRN PRN (Reason: Pain) 3 Days Qty: 12 RF: 0 ondansetron [ondansetron] 4 MG tablet 4 mg PO Q8H PRN PRN (Reason: Nausea) Qty: 10 RF: 0 No Action diazepam 5 MG tablet 5 mg PO BID RF: 0 duloxetine 60 mg capsule,delayed release(DR/EC) 60 mg PO DAILY RF: 0 Primary Care Provider: Tenzin Espinoza Referrals: Tenzin Espinoza, DO [Primary Care Provider] - 3-5 Days Disposition Disposition: Home, Self Care
--- NOTE | 2021-12-16 09:31 | CT_ITS ---
STUDY: CT ABDOMEN AND PELVIS WITH CONTRAST REASON FOR EXAM: Female, 26 years old. Abdominal pain -- IV PO Contrast RADIATION DOSAGE (If Supplied By Facility): CTDIvol = ( 10.67 ) mGy, DLP = ( 500.34 ) mGycm TECHNIQUE: Transaxial images were obtained from the dome of the diaphragm to the symphysis pubis with oral contrast. Oral and amp; IV Gastrografin and amp; 100mL Isovue-300 was administered. Sagittal and coronal images were reconstructed. Individualized dose optimization techniques were used for this CT. COMPARISON: None. FINDINGS: The visualized lung bases are unremarkable. The visualized portions of the heart are within normal limits. Borderline hepatomegaly. No focal lesion is seen. There is non-visualization of the gallbladder, which may be secondary to either contraction or a prior cholecystectomy. Borderline to mild splenomegaly. Normal pancreas. Normal bilateral adrenal glands. 6 mm nonobstructing stone in the midpole of the right kidney. 6 mm nonobstructing stone in the upper pole of the left kidney. No evidence of hydronephrosis. 2.9 cm low-density lesion in the upper pole of the left kidney likely presenting cyst but with higher attenuation values than simple cyst. Normal visualized stomach. Normal small intestine. No evidence of acute diverticulitis. The appendix is visualized and appears normal. Normal abdominal aorta. Normal inferior vena cava. Normal retroperitoneum. Normal urinary bladder. Bilateral adnexal cysts measuring about 4 cm. No free fluid. Normal abdominal wall. Normal osseous structures. CT/Abdomen/Pelvis WITH Contrast IMPRESSION: 1. Bilateral nonobstructing renal stones without evidence of hydronephrosis. 2. Left renal lesion probably representing cysts. Correlation with nonemergent renal ultrasound or MRI is recommended. 3. Borderline hepatosplenomegaly. 4. No focal acute inflammatory process.. Electronically Signed: Jeremias Sykes MD at 11:51 EDT ,
[2021-12-16] MEDS: DiphenhydrAMINE 50 MG/ML Syringe 25 MG IV (09:46)
[2021-12-16] MEDS: Morphine 4 MG/ML Syringe IV ×2 (09:46→12:59)
[2021-12-16] MEDS: Metoclopramide 10 MG/2 ML Vial IV (09:46)
[2021-12-16 09:47] LABS: Mucous, Urine 0 SEEN /hpf (<or=2+); Red Blood Cells-Urine 0 SEEN /hpf (0-5)
[2021-12-16] MEDS: 0.9% Normal Saline 1,000 ML 1000 ML IV (09:47)
[2021-12-16 09:48] LABS: Color, Urine Yellow (Yellow); Glucose, Dipstick Normal (Normal); Ketone-Dipstick Negative (Negative); Leukocyte Esterase-Dipstick Negative /ul (Negative); Nitrite-Dipstick Negative (Negative); Occult Blood-Urine Negative /ul (Negative); Protein-Dipstick Negative (Negative); Specific Gravity, Urine 1.005 (1.002-1.030); Urine Bilirubin Dipstick Negative (Negative); Urine Clarity Clear (Clear); Urine Urobilinogen Normal (Normal)
[2021-12-16 10:04] LABS: Bacteria 1+ /hpf (None Seen); Squamous Epithelial Cells - UA 0-5 SEEN /hpf (5-10); White Blood Cells 0-5 SEEN /hpf (0-5)
[2021-12-16 10:07] LABS: Absolute Lymphocyte Count 1.59 X10^3/uL (0.83-4.51); Absolute Neutrophil Count 6.1 X10^3/uL (2.0-7.7); Basophil# 0.04 X10^3/uL; Basophil% 0.5 % (0-1); Eosinophil# 0.12 X10^3/uL; Eosinophils% 1.5 % (0-5); Hematocrit 50.8 % (37-47); Hemoglobin 17.5 g/dL (12.0-15.0); Lymphocyte # 1.59 X10^3/ul (0.83-4.51); Lymphocyte % 19.3 % (19-41); Mean Corp Hgb Conc 34.4 g/dL (32-36); Mean Corpuscular Hgb 30.8 pg (27.0-32.0); Mean Corpuscular Volume 89.3 fL (81-99); Mean Platelet Vol. 9.3 fl (6.2-12.0); Monocyte# 0.38 X10^3/uL; Monocyte% 4.6 % (0-10); NRBC Flagged by Analyzer 0 % (0-5); Neutrophil # 6.08 X10^3/uL (2.7-7.7); Neutrophil % 73.7 % (47-70); Platelet Count 357 K/mm3 (150-450); RBC Distribution Width CV 12.3 % (11.6-14.6); RBC Distribution Width SD 40.3 fl (35.1-43.9); Red Blood Count 5.69 M/mm3 (4.2-5.4); White Blood Count 8.2 K/mm3 (4.4-11.0)
[2021-12-16 10:47] LABS: Internal QC Validated? YES +Cl - CLEAR BKGD; Pregnancy, Serum, hCG Quali. NEGATIVE Negative
[2021-12-16 10:53] LABS: AST(SGOT) 12 U/L (15-37); Alanine Aminotransfer ALT/SGPT 24 U/L (13-56); Albumin, Serum 4.4 g/dL (3.2-5.0); Alkaline Phosphatase 111 U/L (45-117); Anion Gap 6 (5-15); BUN 7 mg/dL (7-18); BUN/Creat Ratio 7.6 RATIO (10-20); Chloride 109 mmol/L (98-107); Creatinine, Serum 0.93 mg/dL (0.55-1.02); EST Glomerular Filtration Rate 76 mL/min (>60); Est Glom Filt Rate - Afr Amer 92 mL/min (>60); Estimated Creatinine Clearance 87.58 ml/min; Globulin 4.3 g/dL (2.2-4.2); Glucose 94 mg/dL (74-106); Lipase 157 U/L (73-393); Potassium 3.5 mmol/L (3.5-5.1); Protein, Total 8.7 g/dL (6.4-8.2); Sodium Level 140 mmol/L (136-145)
[2021-12-16 11:04] VITALS: BP 124/90; PULSE 46; RESP 16; O2SAT 99
[2021-12-16] MEDS: Ondansetron 4 MG/2 ML Vial IV (12:59)
[2021-12-16 13:07] VITALS: BP 125/85; PULSE 52; RESP 16; O2SAT 97
== END 2021-12-16 13:08 | disposition home or self-care (01) ==
PROVIDERS: Emergency Provider Emergency Medicine; PCP Family Medicine; Visit Provider Emergency Medicine
DX: R10.31 Right lower quadrant pain (principal); N83.201 Unspecified ovarian cyst, right side; N83.202 Unspecified ovarian cyst, left side; R19.7 Diarrhea, unspecified; R11.0 Nausea; F17.210 Nicotine dependence, cigarettes, uncomplicated; Z79.899 Other long term (current) drug therapy
CPT/HCPCS: 74177; 80053; 81001; 83690; 84703; 85025; 96361; 96374; 96375; 96376; 99283; Q9967; A4216; J2405